=== PATIENT | female | born 1945 | race Caucasian/White ===

== ENCOUNTER 2016-07-14 12:23 | Emergency (ER) | payer MEDICARE ==
[~2016-07-14 12:23] MED LIST: ACET500CAP PO; ASAB PO; BUM1 PO; C1 PO; CARDCD180 PO; CENTRUM TAB1 TAB PO; COUMADIN3 MG PO; COUMADIN4 MG PO; GLUCOPHAGE1000 MG PO; HUMALOG SC; KLOR-CON 1010 MEQ PO; L40 PO; LANTUS SC; MAGOX4 PO; MIRALAXPKT PO; MOMUD PO; NO LIST; PRIN10 PO; PRIN5 PO; PROAIR HFA INH; PROVENTIL; VENTOLIN HFA INH; VERAMYST27.5 MCG NAS; ZANTAC150 MG PO; ZOCOR40 PO; ZOFRAN; ZOL50 PO
[2016-07-14 14:18] LABS: ASCORBIC ACID (UR NOT ORDER) NEG (NEG); BASOPHILS 0.1 %; BASOPHILS ABSOLUTE 0.01 10/3/uL (0.0-0.16); BILIRUBIN, URINE NEGATIVE (NEG); EOSINOPHILS 1.5 %; EOSINOPHILS ABSOLUTE 0.12 10/3/uL (0.0-0.53); ER CBC TAT 0 Hrs 15 Mins; ER URINALYSIS TAT 0 Hrs 15 Mins; HEMATOCRIT 34.5 % (36.0-48.0); HEMOGLOBIN 10.5 g/dL (12.0-16.0); IMMATURE GRANULOCYTES 0.2 %; IMMATURE GRANULOCYTES ABSOLUTE 0.02 10/3/uL (0.0-0.11); KETONE, URINE NEGATIVE (NEG); LEUKOCYTE ESTERASE(NOT OR TRACE (NEG); LYMPHOCYTES 13.6 %; MANUAL DIFF NO %; MEAN CORPUS HGB CONC 30.4 g/dL (32.0-36.0); MEAN CORPUSCULAR HEMOGLOB 27.2 pg (26.0-34.0); MEAN CORPUSCULAR VOLUME 89.4 fL (80-100); MEAN PLATELET VOLUME 9.9 fL (9.2-13.0); MONOCYTES 4.6 %; MONOCYTES ABSOLUTE 0.37 10/3/uL (0.21-1.20); NEUTROPHILS ABSOLUTE 6.47 10/3/uL (2.02-8.40); NITRITE (URINE) NEG (NEG); PLATELET COUNT 190 10/3/uL (150-400); RBC DISTRIBUTION WIDTH 16.1 % (12.0-16.0); RED CELL COUNT 3.86 10/6/uL (4.0-5.6); WBC (NOT ORDERED) (RFLEX) 3 (0-5); WHITE BLOOD CELLS 8.1 10/3/uL (4.5-10.5)
[2016-07-14 14:29] LABS: A/G RATIO 0.8 (0.7-1.9); ALBUMIN 3.4 G/DL (3.5-5.0); CALCIUM, SERUM 9.2 MG/DL (8.5-10.4); CHLORIDE, SERUM 103 MMOL/L (96-112); CO2 (CARBON DIOXIDE) 30 MMOL/L (24-34); CREATININE 1.16 MG/DL (0.55-1.02); GFR AFRICAN AMERICAN 56 ML/MIN (>=60); GFR NON AFRICAN AMERICAN 48 ML/MIN (>=60); GLOBULIN 4.5 G/DL (2.5-4.1); POTASSIUM, SERUM 4.1 MMOL/L (3.5-5.3); SGOT(AST) 16 U/L (5-40); SGPT(ALT) 19 U/L (5-65); SODIUM, SERUM 140 MMOL/L (135-148); TOTAL BILIRUBIN 0.5 MG/DL (0-1.2); TOTAL PROTEIN 7.9 G/DL (6.0-8.5)
[2016-07-14 14:30] LABS: ALKALINE PHOSPHATASE 121 U/L (45-117); BUN (BLOOD UREA NITROGEN) 24 MG/DL (6-23); GLUCOSE, SERUM 194 MG/DL (60-99)
[2016-10-26] MEDS ORDERED: BUM1 PO (19:39)
[2016-10-26] MEDS ORDERED: *UNABLE1 (19:39)
[2016-10-26] MEDS ORDERED: JANUMET1 TA1 PO (19:39)
[2016-10-26] MEDS ORDERED: MAGOX4 PO (19:40)
[2016-10-26] MEDS ORDERED: PEP20 PO (19:40)
[2016-10-26] MEDS ORDERED: ZETIA PO (19:40)
[2016-10-26] MEDS ORDERED: COUMADIN6 MG PO (19:40)
[2016-10-26] MEDS ORDERED: ZOL100 PO (19:40)
[2016-10-26] MEDS ORDERED: KLOR-CON 1010 MEQ PO (19:40)
[2016-10-26] MEDS ORDERED: ZOCOR20 PO (19:40)
[2016-10-26] MEDS ORDERED: LANTUS SC (19:41)
[2016-10-27] MEDS ORDERED: PRIN10 PO (10:49)
[2016-10-27] MEDS ORDERED: C1 PO (10:50)
[2016-10-27] MEDS ORDERED: FLEX PO (10:52)
== END 2016-07-14 17:24 | disposition home or self-care (01) ==
LOC: ER 12:23
PROVIDERS: Hospitalist
DX: H66.91 Otitis media, unspecified, right ear (principal); N17.9 Acute kidney failure, unspecified; Z88.0 Allergy status to penicillin; Z88.8 Allergy status to other drugs, medicaments and biological substances; Z79.899 Other long term (current) drug therapy; Z79.01 Long term (current) use of anticoagulants; Z79.4 Long term (current) use of insulin
CPT/HCPCS: 74022; 80053; 81001; 83690; 85025; 99284

== ENCOUNTER 2016-12-14 21:18 | Inpatient (IN) | payer MEDICARE, MEDICAID ==
[~2016-12-14] VITALS: Ht 152.4 cm; Wt 95.0 kg
--- NOTE | ~2016-12-14 | DS ---
Discharge Summary [facility] [address] [place]. [address] NAME: ROSA SAMUEL : 49 STATUS : ADM IN [facility]#: [id number] AGE: 71 ADM/REG DATE : 12/15/16 MR#: [id number] REPORT SERV DATE: 01/14/17 DICTATED BY: CASSIUS SELF DATE: 01/13/17 REPORT STATUS : Draft TRANSCRIBED BY: MODL DATE: 01/13/17 ADMISSION DATE: 12/15/2016 DISCHARGE DATE: CONSULTING PHYSICIAN: Dr. Loving for ID, Dr. Robert Vallecillo for EP Cardio, and Dr. Prado for a CTVS. FINAL DIAGNOSES: 1. Methicillin-resistant Staphylococcus aureus sepsis secondary to infected permanent pacemakers, status post removal. 2. Status post rapid atrial fibrillation with sick sinus syndrome. 3. Coronary artery disease with history of coronary artery bypass grafting. 4. Hypertension. 5. Obesity hypoventilation syndrome. 6. Diabetes. 7. Status post metabolic encephalopathy. 8. Anemia of chronic disease. 9. Chronic thrombocytopenia. 10.Obesity. 11.Breast cancer with bone metastasis. HOSPITAL COURSE: Please refer to the H and P done by Dr. Craig on 12/15/2016, the interim discharge summary done by Dr. Burgess on 12/21/2016, the interim discharge summary done by Dr. Paiz on 12/29/2016, the interim discharge summary done Dionne Gill on 01/04/2017, and the interim discharge summary done by Dr. Fischer on 01/10/2017. Since I took care of this patient, the patient is close to discharge and we are just trying to figure out on a safe discharge. The family wanted her to go to a assisted facility, but she has been denied. The patient herself preferred to go home. She said she has a big house and somebody is going to be there. I discussed this with the Case Management and they said that she has a family member, who is [employer], who can actually help in giving the IV antibiotics. At this point, with the patient being alert and oriented x3, seemingly has some support at home. We are going to be discharging her once we have the PICC line placed and cleared from ID. She will be going home with home health and home PT, and she will follow up with her PCP, Courtney York, in one to two weeks. Follow up with Robert Vallecillo, scheduled for 01/14/2017 at 9:45 a.m. Follow up with Brandon Prado on 01/18/2017. Follow up with [facility], Dr. So, as scheduled. DISCHARGE MEDICATIONS: She will be on the following medications: Lipitor 40 mg at bedtime; Bumex 1 mg a day; Coreg 3.125 mg twice a day; Colace 100 mg twice a day; Metamucil one packet twice a day p.r.n.; Pepcid 20 mg at bedtime; Basaglar KwikPen U100, 18units at bedtime, down from 35 units; lactulose 15 mL twice a day and p.r.n.; Femara 2.5 mg at bedtime; lisinopril 20 mg a day; magnesium oxide 400 mg twice a day; Nexium 40 mg a day; Zoloft 100 mg at bedtime; simethicone 160 mg four times a day; Aldactone 25 mg a day; Carafate 1 g three times a day; Coumadin 3 mg at night; vancomycin 750 mg once a day until 02/06/2017; Humalog 10 units before meals; DuoNeb q.4 hours p.r.n.,; Caltrate 600 mg plus D 1200 mg a day; Tylenol p.r.n.; Dulcolax p.r.n., glucagon p.r.n.; Zofran; Phenergan; Discharge Summary [address] [address] NAME: ROSA SAMUEL : 49 STATUS : ADM IN [facility]#: [id number] AGE: 71 ADM/REG DATE : 12/15/16 MR#: [id number] REPORT SERV DATE: 01/14/17 DICTATED BY: CASSIUS SELF DATE: 01/13/17 REPORT STATUS : Draft TRANSCRIBED BY: CHYNA DATE: 01/13/17 Kaopectate p.r.n.; Flexeril p.r.n.; Clarinda 5 mg p.o. q.6 p.r.n This has been explained to the patient. MARLON/CHYNA Cassius Self M.D. / [id number] CC: Hilary Shah MD NASTASSJA MOORE, RUNNER MAN
--- NOTE | ~2016-12-14 | IDS ---
Interim Discharge Summary [facility] [address] [place]. [address] NAME: RSOA SAMUEL : 49 STATUS : ADM IN [facility]#: [id number] AGE: 71 ADM/REG DATE : 12/15/16 MR#: [id number] REPORT SERV DATE: 12/29/16 DICTATED BY: MARTHA CRUZ DATE: 12/28/16 REPORT STATUS : Draft TRANSCRIBED BY: CHYNA DATE: 12/28/16 ADMISSION DATE: 12/15/2016 DISCHARGE DATE: PROGRESS NOTE/INTERIM DISCHARGE SUMMARY SUBJECTIVE: The patient is excited about getting a temporary pacemaker and eventual removal of her existing pacemaker and six weeks of potential IV antibiotics. OBJECTIVE: VITAL SIGNS: Blood pressure 116/56, 97% on 2 L, 18 respirations, 62 pulse, afebrile 98.0. GENERAL: No acute distress. HEENT: PERRLA. No scleral icterus. CARDIOVASCULAR: 2/6 systolic aortic base murmur. RESPIRATORY: Bibasilar coarse breath sounds. No wheezes. No crackles. ABDOMEN: Obese, nontender. Nondistended. Positive bowel sounds. EXTREMITIES: No edema. No ecchymosis. NEURO: GCS 15. A and O x4. PSYCH: Normal affect and mood. LABORATORY DATA: Labs are reviewed white count 8.2 from 6.9 from 9.3, hemoglobin 8.9 from 9.6, platelets are 121,000 from 126. Sodium 140, 4.1 potassium, 34 BUN, 0.95 creatinine from 1.21 creatinine two days ago. She has blood culture surveillance repeat on the that unfortunately grew the same Staph methicillin-resistant. Her culture on the was negative for the blood and then she had 2/2 MRSA bacteremia on 12/23/2016 for which she is sensitive to Zyvox, rifampin, Bactrim, and vanc. She has a JOSE ordered. She has a CT abdomen and pelvis. Recent passage of stone in the left renal collecting system. Extensive osteo metastasis. Incidental uterine fibroid. CT of the brain had showed for her altered mental status. Stable atrophy. However, she had transthoracic echo here given concern for bacteremia that was recurrent for which had showed an echodensity and RA pacing lead, moderate reduction LVEF. HOSPITAL COURSE/INTERIM DISCHARGE SUMMARY: This is an unfortunate 71-year-old female who suffers from obesity, insulin diabetes, atrial fibrillation RVR, COPD, metastatic breast cancer no plans for chemo at this time, came in initially on 12/15/2016 after recent MRSA sepsis discharge with recent diagnosis of metastatic breast cancer in 10/2016, was started on letrozole by Oncology with complete six-week course of IV vancomycin through 12/07/2016. Went to [facility] and [facility], thereafter, came in acute on chronic systolic heart failure, atrial fibrillation RVR, significant fever. Panculture unfortunately grew out MRSA bacteremia 2/2 subsequent day. Blood cultures no growth today but then two days ago, she grew out again 1/2 MRSA. She had altered mental status and COPD exacerbation which were likely sepsis encephalopathy. Concerned for worsened hypoxic encephalopathy, improved with Brovana, budesonide, steroids. As a result, had to increase her Levemir during that time, now her steroids are going down and she has been requiring less insulin. Her MRSA bacteremia. She had an echocardiogram for which showed an RV pacer lead vegetation in the right atrium. She is to get JOSE and likely will need her pacemaker to be replaced given she Interim Discharge Summary [address] [address] NAME: ROSA SAMUEL : 49 STATUS : ADM IN [facility]#: [id number] AGE: 71 ADM/REG DATE : 12/15/16 MR#: [id number] REPORT SERV DATE: 12/29/16 DICTATED BY: MARTHA CRUZ DATE: 12/28/16 REPORT STATUS : Draft TRANSCRIBED BY: MODAmber DATE: 12/28/16 is pacer dependent via interrogation. She will need temporary pacer placed tomorrow and possible existing pacer extraction on Wednesday or deferred Dr. Nugent, his expertise and likely will need six weeks of IV vanc. Thereafter, we will defer to Dr. Loving and his expertise. We will reduce her prednisone today. Regarding her glycemic needs she has been much better controlled today and we will continue current management. All questions were answered. It took well over 30 minutes to do. FAITH/CHYNA Martha Cruz DO / [id number] CC: Martha Cruz DO
--- NOTE | ~2016-12-14 | CN ---
Consultation Report [facility] [address] [place]. [address] NAME: ROSA SAMUEL : 49 STATUS : ADM IN [facility]#: [id number] AGE: 71 ADM/REG DATE : 12/15/16 MR#: [id number] REPORT SERV DATE: 12/31/16 DICTATED BY: BRANDON PRADO DATE: 12/30/16 REPORT STATUS : Draft TRANSCRIBED BY: MODAmber DATE: 12/30/16 CONSULTATION DATE OF CONSULTATION: 12/29/2016 PERTINENT HISTORY: The patient is a 71-year-old female, referred by Dr. Nugent, after concerns have been raised over possible infection of the chronic indwelling permanent pacemaker, dual-chamber type, left infraclavicular position. The patient had multiple medical problems. She had previous coronary artery bypass grafting, also had previous pacemaker placement by Dr. Melgoza years ago. She now had persistent fevers and bacteremia, and there was some concern over an abnormal ultrasound examination of the pacemaker leads. For that reason, she now is being referred for a Cook catheter extraction of the pacemaker device and the pacemaker leads. The past medical history is significant for previous coronary artery bypass grafting via sternotomy, also with poor wound healing issues due to previous left mastectomy and left radiation. The patient also had multiple medical problems, including diabetes mellitus, hypertension, hyperlipidemia. SOCIAL HISTORY: Never tobacco or ethanol use. FAMILY HISTORY: Noncontributory. REVIEW OF SYSTEMS: Found elsewhere in the chart. PHYSICAL EXAMINATION: VITAL SIGNS: T-max of 100, blood pressure 120/70, heart rate is paced 70s, respirations are 18. She is mildly sedated. CONSTITUTIONAL: She is obese. NEUROLOGICAL: She is intact. PSYCHIATRIC: Normal. PULMONARY: Showed breath sounds clear, but distant. No obvious rales. CARDIAC: Showed paced rhythm. No obvious murmur. A well-healed sternotomy wound. GI: Showed abdomen to be obese, soft, nontender. No masses. EXTREMITIES: Showed no obvious edema. SKIN: Showed no obvious rash. MUSCULOSKELETAL: Unremarkable. : Showed normal female external genitalia. The chest x-ray demonstrated clear lung sampson. There was permanent pacemaker placed in the left infraclavicular position with right atrial lead active fixation and right ventricular lead active fixation. IMPRESSION: At this time is possible infection of the permanent pacemaker, indwelling and the plan is to proceed with Cook catheter extraction and we will proceed with extraction of Consultation Report [place] [address] [address] NAME: ROSA SAMUEL : 49 STATUS : ADM IN [facility]#: [id number] AGE: 71 ADM/REG DATE : 12/15/16 MR#: [id number] REPORT SERV DATE: 12/31/16 DICTATED BY: BRANDON PRADO DATE: 12/30/16 REPORT STATUS : Draft TRANSCRIBED BY: CHYNA DATE: 12/30/16 those leads and the device and probable VAC pack dressing will be placed with eventual closure . /CHYNA Brandon Prado M.D. / [id number] CC: Dionne Gill M.D.
--- NOTE | ~2016-12-14 | DS ---
Discharge Summary [facility] [address] [place]. [address] NAME: ROSA SAMULE : 49 STATUS : DIS IN PAT#: [id number] AGE: 71 ADM/REG DATE : 12/15/16 MR#: [id number] REPORT SERV DATE: 01/16/17 DICTATED BY: CASSIUS SELF DATE: 01/15/17 REPORT STATUS : Draft TRANSCRIBED BY: MODL DATE: 01/15/17 ADMISSION DATE: 12/15/2016 DISCHARGE DATE: 01/15/2017 ONCOLOGIST: Dr. Kai So. ID: Dr. Loving. EP CARDIO: Dr. Robert Nugent. ACTVS: Dr. Otto. FINAL DIAGNOSES: 1. Methicillin-resistant Staphylococcus aureus sepsis secondary to infected permanent pacemaker, status post removal. 2. Status post rapid atrial fibrillation with sick sinus syndrome. 3. Coronary artery disease with history of CABG. 4. Hypertension. 5. OHS. 6. Diabetes. 7. Anemia of chronic disease. 8. Chronic thrombocytopenia. 9. Obesity. 10.Breast cancer with bone metastasis. HOSPITAL COURSE: Please refer to the discharge summary done by myself on 01/14/2017. The patient is supposed to be discharged; however, the PICC line was not placed. We had to consult Dr. Monge of Vascular to put a PICC line. This delayed her discharge. However, there were some problems with her chcf days that she only has 11 days, and the patient would need antibiotic until 02/06/2017. The family said that they cannot handle this, and they had to look for some other place for her. We finally got [facility] to evaluate the patient, and they are willing to accept the patient today. Also, the patient's white count and anemia were getting worse. We believe that this might be a reaction to the vancomycin, though we are not sure. To play it safe, we switched the patient to daptomycin. The patient will now be transferred to [facility]. She will have the same followup and same medications with the change of instead of vancomycin, the patient will be getting daptomycin at 8 mg/kg q.24 hours and also the long-acting insulin will be down to 10 units instead of 18. This has been explained to the patient and to the family, and they are happier with this plan. MARLON/CHYNA Cassius Self M.D. Discharge Summary [address] [address] NAME: ROSA SAMUEL : 49 STATUS : DIS IN PAT#: [id number] AGE: 71 ADM/REG DATE : 12/15/16 MR#: [id number] REPORT SERV DATE: 01/16/17 DICTATED BY: CASSIUS SELF. DATE: 01/15/17 REPORT STATUS : Draft TRANSCRIBED BY: CHYNA DATE: 01/15/17 / [id number] CC: Hilary Shah NP
--- NOTE | ~2016-12-14 | HP ---
History And Physical [place] [address] [facility] [place]. [address] NAME: ROSA ZHENG : 49 STATUS : ADM IN [facility]#: [id number] AGE: 71 ADM/REG DATE : 12/15/16 MR#: [id number] REPORT SERV DATE: 12/15/16 DICTATED BY: ISBAELA BURCH DATE: 12/15/16 REPORT STATUS : Draft TRANSCRIBED BY: MODAmber DATE: 12/15/16 DATE OF ADMISSION: 12/15/2016 POINT OF ENTRY: [facility] Emergency Department. PRIMARY CARE PHYSICIAN: Unknown at this time. PRIMARY STAFF PHARMACIST HOSPITAL: Also unknown at this time. CHIEF COMPLAINT: Shortness of breath, hypoxemia. HISTORY OF PRESENT ILLNESS: Ms. Zheng is a 71-year-old female with a history of atrial fibrillation on anticoagulation, insulin-dependent 2, chronic systolic congestive heart failure with ejection fraction of 40%, metastatic breast cancer with multiple bony lesions as well as a recent history of MRSA bacteremia who was admitted to the Hospitalist Service for reports of shortness of breath and hypoxemia. The patient was admitted to the Hospitalist Service from October 26 through November 11 for acute on chronic hypoxic respiratory failure, encephalopathy, and found to have evidence of MRSA bacteremia of unclear source as well as a new diagnosis of metastatic breast cancer with multiple bony lesions. She was discharged from our facility with instructions for IV vancomycin therapy for MRSA bacteremia through December 08. The patient is brought today from [facility] for reports of shortness of breath and hypoxemia. The patient is unable to provide much history, her daughters who previously were at bedside are no longer available for me to get additional history from. The patient does state that she was feeling short of breath, was having some cough and sputum production and states that her family members and/or staff are concerned that she was turning blue. She also does report some chest pain as well. Initial evaluation in the emergency department was notable for a fever of 100.8 degrees Fahrenheit. Chest x-ray concerning for some mild volume overload. Does have evidence of urinary tract infection. White count is normal. She also has evidence of some volume overload with a BNP of 1380. The patient was subsequently admitted to the Hospitalist Service for further evaluation and management. REVIEW OF SYSTEMS: Comprehensive system otherwise negative unless listed in history of present illness. PAST MEDICAL HISTORY: 1. Chronic systolic congestive heart failure with ejection fraction of 40%. 2. Atrial fibrillation, on Coumadin. 3. Sick sinus syndrome, status post pacemaker insertion. 4. Mild pulmonary hypertension. 5. Obstructive sleep apnea and obesity hypoventilation syndrome on BiPAP therapy. 6. Chronic hypoxic respiratory failure, on 2 L nasal cannula. History And Physical [address] [address] NAME: ROSA ZHENG : 49 STATUS : ADM IN [facility]#: [id number] AGE: 71 ADM/REG DATE : 12/15/16 MR#: [id number] REPORT SERV DATE: 12/15/16 DICTATED BY: ISABELA BURCH DATE: 12/15/16 REPORT STATUS : Draft TRANSCRIBED BY: CHYNA DATE: 12/15/16 7. History of coronary artery disease with prior coronary artery bypass grafting. 8. Hypertension. 9. Insulin-dependent 2, hemoglobin A1c of 7.5. 10.History of metastatic breast cancer with multiple bony lesions. 11.Chronic anemia, anemia of chronic disease. 12.Recent history of MRSA bacteremia of unclear source. SURGICAL HISTORY: 1. Pacemaker. 2. CABG. 3. Left mastectomy. 4. Right shoulder surgery. 5. Cholecystectomy. 6. . ALLERGIES: PENICILLIN AND ADHESIVE TAPE. HOME MEDICATIONS: 1. Tylenol 162.5 mg q.6 hours p.r.n. 2. DuoNeb one inhalation q.4 hours p.r.n. 3. Bisacodyl 10 mg daily. 4. Bismuth subsalicylate 524 mg q.4 hours. 5. Bumex 1 mg daily. 6. Caltrate vitamin D 1200 mg daily. 7. Carvedilol 3.125 mg b.i.d. 8. Flexeril 10 mg q.8 hours p.r.n. 9. Theophylline with guaifenesin 5-10 mL q.4 hours p.r.n. 10.Docusate 100 mg b.i.d. 11.Nexium 40 mg daily. 12.Pepcid 20 mg at bedtime. 13.Insulin glargine 35 units at bedtime. 14.Humalog 10 units t.i.d. with meals. 15.Humalog sliding scale. 16.Lactulose 15 mL b.i.d. 17.Lactulose 30 mL p.r.n. 18.Femara 2.5 mg at bedtime. 19.Lisinopril 10 mg daily. 20.Magnesium oxide 400 mg b.i.d. 21.Milk of magnesia 30 mL daily. 22.Zofran ODT 4 mg p.r.n. 23.Phenergan 12.5 mg q.6 hours p.r.n. 24.Psyllium packet 1 tab b.i.d. 25.Zoloft 100 mg at bedtime. 26.Simethicone 160 mg q.i.d. 27.Aldactone 25 mg daily. 28.Carafate 1 g t.i.d. History And Physical [address] [address] NAME: ROSA ZHENG : 49 STATUS : ADM IN [facility]#: [id number] AGE: 71 ADM/REG DATE : 12/15/16 MR#: [id number] REPORT SERV DATE: 12/15/16 DICTATED BY: ISABELA BURCH DATE: 12/15/16 REPORT STATUS : Draft TRANSCRIBED BY: CHYNA DATE: 12/15/16 29.Coumadin 3 mg daily. SOCIAL HISTORY: Denies any tobacco, alcohol, or illicit's. FAMILY MEDICAL HISTORY: History of diabetes, Crohn disease, and gastric cancer. LABS AND IMAGIN. White count is 9.5, hemoglobin is 7.9, hematocrit is 26.5, platelets count is 154, INR 1.5. 2. Sodium 138, potassium 5.1, chloride 102, carbon dioxide 27, BUN 19, creatinine 1.24, glucose is 184, calcium is 8.5, protein 7.2, albumin 2.5, bilirubin is 1.0, ALT is 15, AST 45, alkaline phosphatase is 190. 3. Troponin pending. 4. BNP 1380. 5. Lactic acid 1.4. 6. Lipase is 245. 7. ABG; pH is 7.4, pCO2 of 39, PO2 of 66, bicarb is 20, saturating 92% on 2 L by nasal cannula. 8. Urinalysis: Spec gravity 1.015 with hazy, large blood, moderate leukocyte esterase, 29 red with 129 white blood cells per high power field with 2 epithelial cells. 9. Chest x-ray per my review shows cardiomegaly with pacemaker in place with some very mild intravascular volume overload. 10.EKG per my review shows an underlying atrial fibrillation rhythm that is primarily of the paced with heart rate of 120. No evidence of any acute ischemia or infarction review of [employer] and [employer] do revealed an echocardiogram from October 2016 shows ejection fraction of 40% with [id number] tricuspid regurgitation with mild pulmonary hypertension. PHYSICAL EXAMINATION: VITAL SIGNS: Temperature is 100.8 degrees Fahrenheit, pulse is 74, respirations 20, saturating 95% on 2 L via nasal cannula, blood pressure 169/82. On recheck, blood pressure is 133/48, pulse of 85, saturating 97% on 3 L nasal cannula. GENERAL: The patient is awake, alert, in no distress. Resting comfortably. She is a chronically ill-appearing elderly female. No family is currently at bedside. HEENT: Atraumatic and normocephalic. Moist mucous membranes. Pupils are equal, round, reactive to light and accommodation. Extraocular eye movements are intact. No scleral icterus. NECK: No jugular venous distention. No carotid bruits. CARDIAC: Irregularly irregular rate and rhythm. A faint 2/6 systolic murmur heard best over left lower sternal border. LUNGS: On oxygen, she has very poor stress test. She has decreased breath sounds in the bases with prolonged expiratory phase with some very mild inspiratory crackles and rales, bilateral bases. No wheezes or rhonchi appreciated. ABDOMEN: Obese, soft, nontender, nondistended. Good bowel sounds. No rebound, guarding, or rigidity. EXTREMITIES: Warm perfused with trace lower extremity edema. SKIN: Warm and dry. History And Physical [address] [address] NAME: ROSA ZHENG : 49 STATUS : ADM IN [facility]#: [id number] AGE: 71 ADM/REG DATE : 12/15/16 MR#: [id number] REPORT SERV DATE: 12/15/16 DICTATED BY: ISABELA BURCH DATE: 12/15/16 REPORT STATUS : Draft TRANSCRIBED BY: MODL DATE: 12/15/16 PSYCH: Affect appropriate. NEURO: She is alert and oriented to person only, very poor historian. Cranial nerves II through XII grossly intact. Speech is normal. Gait not assessed. ASSESSMENT AND PLAN: Ms. Zheng is a 71-year-old female, who presents with shortness of breath, hypoxemia, and found to have evidence of urinary tract infection as well as acute on chronic systolic congestive heart failure. PROBLEM LIST: 1. Acute on chronic systolic congestive heart failure. 2. Acute on chronic hypoxic respiratory failure. 3. Atrial fibrillation with RVR. 4. Urinary tract infection. 5. Obstructive sleep apnea and obesity hypoventilation syndrome on home BiPAP versus CPAP. 6. Mild renal insufficiency. 7. Insulin-dependent diabetes mellitus type 2. PLAN: 1. Acute on chronic systolic congestive heart failure. The patient has some mild volume overload on chest x-ray, BNP is also elevated. She received 40 IV Lasix here in the ER. We will dose 1 mg of Bumex q.8 hours for [address] the patient on fluid and sodium restriction, consult heart failure team for assistance. 2. Acute on chronic hypoxic respiratory failure. I suspect this is multifactorial from mild volume overload and her underlying PRISCILLA and OHS. We will continue q.4 hours DuoNeb p.r.n., place the patient on intermittent BiPAP at bedtime p.r.n. as well as order aggressive pulmonary toilet with incentive spirometry, flutter valve, as well as EzPAP with her DuoNebs. 3. Urinary tract infection. Follow up urine culture. We will start on IV vancomycin and Rocephin given her history of recent MRSA bacteremia as well as Rocephin to cover other bugs. 4. Obstructive sleep apnea and obesity hypoventilation syndrome. We will place patient on intermittent p.r.n. at bedtime BiPAP. 5. Renal insufficiency. Hold patient's lisinopril while we provide IV diuresis. 6. Atrial fibrillation with RVR. I placed the patient on some diltiazem per protocol. Continue the patient's home Coreg. 7. Insulin-dependent diabetes mellitus type 2. I placed the patient on level 3 insulin sliding scale. Continue the patient's home long-acting insulin. 8. DVT prophylaxis. The patient is on Coumadin. CODE STATUS: The patient wishes to be a full code, this was confirmed by POLST form that accompany chart upon transfer. JANET/CHYNA Isabela Kim History And Physical [address] [address] NAME: ROSA ZHENG : 49 STATUS : ADM IN PAT#: [id number] AGE: 71 ADM/REG DATE : 12/15/16 MR#: [id number] REPORT SERV DATE: 12/15/16 DICTATED BY: ISABELA BURCH DATE: 12/15/16 REPORT STATUS : Draft TRANSCRIBED BY: MODL DATE: 12/15/16 MD Kiara / [id number] CC: Edy Randolph M.D.
--- NOTE | ~2016-12-14 | OP ---
Record Of Operation [facility] [address] [place]. [address] NAME: ROSA SAMUEL : 49 STATUS : ADM IN [facility]#: [id number] AGE: 71 ADM/REG DATE : 12/15/16 MR#: [id number] REPORT SERV DATE: 12/31/16 DICTATED BY: BRANDON PRADO DATE: 12/30/16 REPORT STATUS : Draft TRANSCRIBED BY: CHYNA DATE: 12/30/16 DATE OF PROCEDURE: 12/30/2016 PREOPERATIVE DIAGNOSIS: Infected dual-chamber permanent pacemaker leads. POSTOPERATIVE DIAGNOSIS: Infected dual-chamber permanent pacemaker leads. OPERATIVE PROCEDURE: Cook catheter extraction of right atrial and right ventricular leads under fluoroscopy with permanent pacemaker removal, pocket debridement, and VAC pack placement. ANESTHESIA: General endotracheal anesthesia, AA. DRAINS: No drains were placed. PERTINENT HISTORY: The patient is a 71-year-old female who had undergone previous dual- chamber permanent pacemaker placed in the left infraclavicular position by Dr. Melgoza years ago who now has multiple medical problems and recurrent fevers with bacteremia and now concerns with possible infected permanent pacemaker leads with abnormal ultrasonic examination. OPERATIVE FINDINGS: The patient had no evidence of infection in the pacemaker pocket. Cultures were obtained. The leads were densely adherent throughout the entire course through the endovascular channels into the heart. OPERATIVE PROCEDURE: The patient was taken to the operating room, placed in the supine position, anesthesia obtained, and the patient was prepped and draped in the usual fashion. Fluoroscopy was then used to evaluate the two leads, one in the right atrium and one in the right ventricle, both were active fixation leads. An incision was made through the pocket in the left infraclavicular fossa, the pacemaker pocket was opened, the dual-chamber pacemaker was brought to the skin surface, the pacemaker leads were dissected to their entire lengths. A temporary pacing wire had been placed in the right neck by Dr. Vallecillo, and the patient was maintained with that pacemaker modality. The pacemaker generator was disconnected from the two indwelling leads, stylets were placed in both leads and confirmed to be patent. The active fixation could not be reactivated, and therefore, they remained fixed to the heart, both the right atrium and the right ventricle. The ends of those leads were amputated and interlocking stylets were placed down both central channels. Under fluoroscopic guidance, a Cook catheter shortie cutter, size 11-[place]izen [place], was used to clear the scar from the leads underneath the left clavicle and extending into the innominate vein, this position and pathway were confirmed by fluoroscopy, both right atrial and right ventricular leads were freed. The short device was then removed and the longer 11-Citizen [place] device was then used to divide the adhesions throughout the entire length of the right ventricular lead; this lead was brought out in its entirety. That device was then used to divide the adhesions throughout the entire length of the right atrial lead, this was also brought out through its entirety. The leads were examined and had no particular abnormalities except for the usual adhesions on them, these were easy to excise and sent for Record Of Operation [address] [address] NAME: ROSA SAMUEL : 49 STATUS : ADM IN [facility]#: [id number] AGE: 71 ADM/REG DATE : 12/15/16 MR#: [id number] REPORT SERV DATE: 12/31/16 DICTATED BY: BRANDON PRADO DATE: 12/30/16 REPORT STATUS : Draft TRANSCRIBED BY: CHYNA DATE: 12/30/16 microbiology studies. Good hemostasis was noted. The pacemaker pocket was completely debrided and all fibrous tissue were amputated. These pockets were irrigated with 3 L of pulse lavage saline. Hemostasis was obtained with electrocautery. A VAC pack dressing was placed. The patient tolerated the procedure well and was taken from the operating room table to the recovery room in stable condition and into the ICU. CARMEN/CHYNA Brandon Prado M.D. / [id number] CC: Dionne Gill M.D.
--- NOTE | ~2016-12-14 | CN ---
Consultation Report [facility] [address] [place]. [address] NAME: ROSA SAMUEL : 49 STATUS : ADM IN [facility]#: [id number] AGE: 71 ADM/REG DATE : 12/15/16 MR#: [id number] REPORT SERV DATE: 12/24/16 DICTATED BY: KOKI LOVING DATE: 12/24/16 REPORT STATUS : Draft TRANSCRIBED BY: MODL DATE: 12/24/16 DATE OF CONSULTATION: 12/24/2016 Infectious Disease Consult REASON FOR CONSULTATION: MRSA sepsis. HISTORY OF PRESENT ILLNESS: This is a 71-year-old female, known to me from consultation during her last admission to [facility], when I saw her on 10/27/2016 for MRSA sepsis. There is no obvious etiology. She did have a transthoracic echocardiogram that admission which was unrevealing. Because of an unclear source and some back pain. She had a CT imaging done which showed evidence of widely metastatic disease in her bones which led to a biopsy of the pelvic bone on 11/05/2016 which confirmed the diagnosis of metastatic breast cancer. She was seen by Oncology and started on letrozole. The patient was discharged to complete a 6-week course of IV vancomycin through 12/07/2016. She initially went to [facility] and then into [facility] The patient was readmitted to [facility] on 12/15/2016 because of shortness of breath and hypoxemia and was felt to have acute on chronic systolic congestive heart failure along with atrial fibrillation with rapid ventricular rate. The patient had repeat blood cultures done on 12/14/2016 and 12/18/2016 which were negative. The patient overall had improved when she spiked a high fever yesterday to 103 and had repeat blood cultures done, both sets of which have returned positive for presumptive MRSA. The patient also developed some increasing shortness of breath, but is improved today and denies any cough and follow up chest x-ray show congestive changes without signs of an acute pneumonia. The patient was started the patient was started again on broad-spectrum antibiotics with vancomycin, cefepime, and Flagyl. She had received a brief course of ceftriaxone at the time of her readmission along with vancomycin because of concern about a UTI, but her urine culture had returned negative. Her chief complaint is episodic vague discomfort and noise in her ears when she lies down at night with her BiPAP mask. She denies any back pain or pain elsewhere at the present time. PAST MEDICAL HISTORY: Otherwise, unchanged from above and the consult from 10/27/2016. ALLERGIES: PENICILLIN. PRESENT MEDICATIONS: In addition to the antibiotics mentioned include, Lipitor, Bumex, Caltrate, vitamin D, Coreg, Colace, Pepcid, insulin sliding scale, lactulose, Femara (letrozole), Prinivil, magnesium oxide, Solu-Medrol 60 mg IV b.i.d., Protonix, Zoloft, Mylicon, Aldactone, Carafate, Coumadin, Levemir. SOCIAL HISTORY: Unchanged. FAMILY HISTORY: Unchanged. REVIEW OF SYSTEMS: As outlined above. Otherwise negative. Consultation Report [address] [place]. [address] NAME: ROSA SAMUEL : 49 STATUS : ADM IN [facility]#: [id number] AGE: 71 ADM/REG DATE : 12/15/16 MR#: [id number] REPORT SERV DATE: 12/24/16 DICTATED BY: KOKI LOVING DATE: 12/24/16 REPORT STATUS : Draft TRANSCRIBED BY: CHYNA DATE: 12/24/16 PHYSICAL EXAMINATION: VITAL SIGNS: She weighs 91 kg. Fevers as mentioned. She is presently afebrile. Pulse 93, blood pressure 106/57, it was as low as 91/45 overnight. GENERAL: She is sitting up in a chair, alert, in no acute distress. HEAD AND NECK: Extraocular movements intact. Conjunctivae normal. The oral cavity shows no thrush. Neck is supple. LUNGS: Clear to auscultation posteriorly. She does have scattered bilateral inspiratory crackles anteriorly. CARDIAC: Shows a soft one to two over six systolic ejection murmur at the left sternal border. Pacemaker in the left upper chest has surrounding venous varicosities,. But no signs of definite inflammation. ABDOMEN: Obese, soft, and nontender. Decreased bowel sounds. EXTREMITIES: Show venous varicosities. She has a peripheral IV in her right wrist without signs of phlebitis. SKIN: Without rash. LAB STUDIES: White blood cell count today 11.9, it was 9.9, yesterday, hemoglobin 8.4, platelets 115. She has 29% bands. Procalcitonin is 20.51. Creatinine today is 1.89, it was 1.28 yesterday and 1.02 on 12/22/2016. Glucose is 392. Arterial blood gas yesterday showed a pH of 7.47, pCO2 of 41, pO2 of 77 on 40% FiO2. The patient's chest x-rays are reviewed and are as outlined above. She also had a CT scan of the brain without IV contrast yesterday which just showed stable atrophy and some fluid and some right mastoiditis. 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 I do not think the positive blood cultures from yesterday are likely to be from a new source of sepsis, but more likely a relapse of what ever the source was back in October. Specifically I do not see a hospital-acquired infection such as pneumonia or an IV device related infection. This of course is all concerning for the possibility of endocarditis and/or infection of her pacemaker. PLAN: 1. Vancomycin. 2. We would discontinue the cefepime and Flagyl. 3. We will get a transthoracic echocardiogram to start that she would likely need transesophageal echo. KENDRA/CHYNA Koki Loving M.D. Consultation Report [address] [place]. [address] NAME: ROSA SAMUEL : 49 STATUS : ADM IN [facility]#: [id number] AGE: 71 ADM/REG DATE : 12/15/16 MR#: [id number] REPORT SERV DATE: 12/24/16 DICTATED BY: KOKI LOVING DATE: 12/24/16 REPORT STATUS : Draft TRANSCRIBED BY: MODAmber DATE: 12/24/16 / [id number] CC: DO Kai Ortiz MD
--- NOTE | ~2016-12-14 | IDS ---
Interim Discharge Summary [facility] [address] [place]. [address] NAME: ROSA SAMUEL : 49 STATUS : ADM IN PAT#: [id number] AGE: 71 ADM/REG DATE : 12/15/16 MR#: [id number] REPORT SERV DATE: 12/21/16 DICTATED BY: ALONSO BURGESS DATE: 12/21/16 REPORT STATUS : Draft TRANSCRIBED BY: MODAmber DATE: 12/21/16 ADMISSION DATE: 12/15/2016 DISCHARGE DATE: 12/21/2016 DIAGNOSES: 1. Acute on chronic systolic heart failure and volume overload, on presentation. 2. Atrial fibrillation with rapid ventricular response. 3. Recent urinary tract infection and methicillin-resistant Staphylococcus aureus, completed treatment. 4. Methicillin-resistant Staphylococcus aureus bacteremia. 5. Anemia. 6. Chronic hypoxia. 7. Metastatic cancer. CT head done during this hospitalization negative. 8. Acute encephalopathy. LABS AND IMAGING: To date, CT head performed to evaluate for any metastatic disease. No acute intracranial abnormality, atrophy, chronic microvascular white matter ischemic changes. HOSPITAL COURSE: Please see H and P for complete details. HISTORY OF PRESENT ILLNESS: Briefly, this is a very pleasant 71-year-old female, who over the last few months has been receiving antibiotic therapy for MRSA bacteremia with vancomycin completed course on 12/07, but was during transitions from acute rehab to fdc, has had adjustments in multiple medications, was noted to have steady volume increase and essentially an acute overload. The patient tolerated diuresis with IV medications protocol. Respiratory status continued to improve. Concern for mild acute encephalopathy was noted by family. The patient's fluid balance began to improve. The patient's mental status slowly has improved. Infectious workup was evaluated, but negative. The patient is chronic hypoxic with CPAP dependence at night and has been tolerating this and compliant. On a daily basis, the patient's strength continues to improve. Family was requesting upon discharge to discharge home as the patient was making significant progress up until recent admission for acute systolic heart failure. Approximately a week prior to that, the patient had began to make slow and steady declines. The patient also has been monitored with blood sugar and on Levemir and sliding scale insulin. P.o. intake has improved and is currently monitoring I's and O's and oral intake. Anticipate discharge within next 24-72 hours, pending stabilization of weight, chronic O2, and improvement in mental status. The patient of note does not appear to do better on Bumex and Lasix load in times best. All questions answered with the patient. Care to be resumed by Medicine team in a.m. DDN/MODL Interim Discharge Summary [address] [place]. [address] NAME: ROSA SAMUEL : 49 STATUS : ADM IN PAT#: [id number] AGE: 71 ADM/REG DATE : 12/15/16 MR#: [id number] REPORT SERV DATE: 12/21/16 DICTATED BY: ALONSO BURGESS DATE: 12/21/16 REPORT STATUS : Draft TRANSCRIBED BY: MODAmber DATE: 12/21/16 Alonso Burgess MD / [id number] CC: Alonso Burgess MD
--- NOTE | ~2016-12-14 | OP ---
Record Of Operation [facility] [address] [place]. [address] NAME: ROSA SAMUEL : 49 STATUS : ADM IN PAT#: [id number] AGE: 71 ADM/REG DATE : 12/15/16 MR#: [id number] REPORT SERV DATE: 01/01/17 DICTATED BY: BRANDON PRADO DATE: 01/01/17 REPORT STATUS : Draft TRANSCRIBED BY: CHYNA DATE: 01/01/17 DATE OF PROCEDURE: 01/01/2017 PREOPERATIVE DIAGNOSIS: Status post removal of infected dual-chamber permanent pacemaker, left infraclavicular fossa. POSTOPERATIVE DIAGNOSIS: Status post removal of infected dual-chamber permanent pacemaker, left infraclavicular fossa, now in need of delayed primary closure of wound. OPERATIVE PROCEDURE: Delayed primary closure of permanent pacemaker wound of approximately 10 cm in length, left infraclavicular fossa. ANESTHESIA: General endotracheal anesthesia, AA. DRAINS: No drains were placed. OPERATIVE PROCEDURE: The patient was taken to the operating room and placed in the supine position. Anesthesia was obtained. The patient was prepped and draped in the usual sterile fashion. The left infraclavicular permanent pacemaker pocket wound was examined closely. It had been previously debrided of any devitalized tissue and fibrous material from the pocket. It was examined. Necrotic skin edges were excised. The wound was irrigated with 3 L of pulse lavage saline. Hemostasis was obtained with electrocautery. The deep spaces were obliterated in multiple layer fashion using running #1 Stratafix suture. The skin edges were approximately 10 cm in length were reapproximated with alternating interrupted 3- 0 nylon vertical mattress sutures and skin clips. Prevena dressing was placed. The patient tolerated procedure well and was taken back to the recovery room in stable condition. EVA Brandon Prado M.D. / [id number] CC: Dionne Gill M.D.
--- NOTE | ~2016-12-14 | CN ---
Consultation Report [facility] [address] [place]. [address] NAME: ROSA ZHENG : 49 STATUS : ADM IN [facility]#: [id number] AGE: 71 ADM/REG DATE : 12/15/16 MR#: [id number] REPORT SERV DATE: 12/26/16 DICTATED BY: TITUS NUGENT DATE: 12/26/16 REPORT STATUS : Draft TRANSCRIBED BY: MODAmber DATE: 12/26/16 CONSULTATION DATE OF CONSULTATION: 12/26/2016 INDICATION: Bacteremia. HISTORY OF PRESENT ILLNESS: Ms. Zheng is a 71-year-old female, who normally sees Dr. Melgoza. She has a pacemaker. She has been admitted for recurrent MRSA bacteremia. She denies chest pain. No swallowing problems. An echocardiogram has shown what appears to be an echodensity attached to one of her leads in the right atrium. PAST MEDICAL HISTORY: 1. Heart failure. 2. History of atrial fibrillation. 3. Sick sinus syndrome with pacemaker. 4. Hypertension. 5. Sleep apnea. 6. Coronary disease. 7. History of respiratory failure. 8. Diabetes. 9. Anemia. SOCIAL HISTORY: There is family in the room. She appears to be a nonsmoker. FAMILY HISTORY: Noncontributory. HOME MEDICATIONS: Please see the list in the chart, as it is extensive. Relevant cardiac medications are Bumex 1 mg daily, Coreg 3.125 mg b.i.d., Prinivil 10 mg daily, spironolactone 25 mg daily, and Coumadin. ALLERGIES: SHE IS ALLERGIC TO PENICILLIN. REVIEW OF SYSTEMS: A 10-system review was asked and was negative except for noted above in history of present illness and for the following. She has chronic shortness of breath. Chronic fatigue. She does not get around well. No recent cold or flu symptoms. PHYSICAL EXAMINATION: VITAL SIGNS: Temperature 97.5, heart rate 70, blood pressure 150/63. GENERAL: Ms. Zheng is a well-developed female, in no acute distress. She is alert and oriented to person and place. HEENT: Negative. NECK: There is no obvious JVD in her neck. She does not appear dehydrated. Consultation Report [facility] [address] [place]. [address] NAME: ROSA ZHENG : 49 STATUS : ADM IN PAT#: [id number] AGE: 71 ADM/REG DATE : 12/15/16 MR#: [id number] REPORT SERV DATE: 12/26/16 DICTATED BY: TITUS NUGENT DATE: 12/26/16 REPORT STATUS : Draft TRANSCRIBED BY: CHYNA DATE: 12/26/16 LUNGS: Lungs have decreased breath sounds at both bases. Minor rhonchi. No wheezing. HEART: Tones are regular. There is a murmur. ABDOMEN: The abdominal exam is negative. She has good bowel sounds. EXTREMITIES: Shows chronic pitting edema. NEUROLOGIC: She moves all four extremities. She has normal speech. SKIN: Shows some bruising. LABORATORY DATA: White blood cell count is 9, hemoglobin is 9, hematocrit 31, platelet count 126. Sodium 139, potassium 4.2, BUN 45, creatinine 1.2. As before, blood cultures have shown MRSA, which is recurrent. Echocardiogram: This was performed this hospitalization and documents a mobile echodensity, which seems to be attached to the pacemaker wire in the right atrium. The ejection fraction is 55%. IMPRESSION: 1. 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 2. Presence of pacemaker. 3. Multiple other medical and cardiology problems as listed above. PLAN: Due to the suspicious transthoracic echocardiogram, we will proceed with a JOSE to characterize this echodensity in the right atrium. Given her recurrent MRSA and presence of pacemaker, there is a very good chance that the pacemaker will need to be removed no matter what the JOSE shows. This was discussed with the patient and her family and they agree. We will proceed with a transesophageal echocardiogram on Wednesday. LAURIE/CHYNA Titus Nugent M.D. / [id number] CC: Garrick Bonilla DO
--- NOTE | ~2016-12-14 | CN ---
Consultation Report [facility] [address] [place]. [address] NAME: ROSA SAMUEL : 49 STATUS : ADM IN [facility]#: [id number] AGE: 71 ADM/REG DATE : 12/15/16 MR#: [id number] REPORT SERV DATE: 01/15/17 DICTATED BY: SINAN MONGE DATE: 01/15/17 REPORT STATUS : Draft TRANSCRIBED BY: CHYNA DATE: 01/15/17 CONSULT NOTE DATE OF CONSULTATION: 01/14/2017 REASON FOR CONSULTATION: Evaluation for long-term IV access. BRIEF HISTORY: The patient is a 71-year-old female with a past medical history significant for atrial fibrillation, diabetes, breast cancer, and chronic systolic congestive heart failure, who was admitted to the hospital with shortness of breath and hypoxemia. Apparently, she has been in and out of the hospital for the past three months. Most recently, she had a pacemaker infection that necessitated removal and interval placement of a pacemaker on the right side. She needs long-term antibiotics, and the PICC nurses have tried to place a PICC line. While they were able to get a catheter in somewhat, it could not be threaded in all the way, even under fluoroscopy. I was consulted for evaluation and treatment. The patient denies any other complaints acutely. PAST MEDICAL HISTORY: Chronic systolic congestive heart failure, atrial fibrillation, sick sinus syndrome, pulmonary hypertension, obstructive sleep apnea, obesity, coronary artery disease, hypertension, diabetes, metastatic breast cancer, anemia, MRSA bacteremia. PAST SURGICAL HISTORY: A couple of pacemaker placements, coronary artery bypass, left mastectomy with axillary node dissection, right shoulder surgery, cholecystectomy, C- section. ALLERGIES: PENICILLIN, ANAPHYLAXIS; ADHESIVE TAPE, UNKNOWN. MEDICATIONS: Documented on the chart and were reviewed. FAMILY HISTORY: Diabetes, Crohn disease, gastric cancer. SOCIAL HISTORY: She denies tobacco, alcohol, or drug use. REVIEW OF SYSTEMS: A complete review of systems was performed and is negative with the exception of the aforementioned findings. PHYSICAL EXAMINATION: VITAL SIGNS: Documented on the chart and were reviewed. GENERAL: The patient is awake, alert, and oriented, no apparent distress. HEAD AND NECK: Her head and neck examination is benign without any carotid bruits. HEART: Irregular rate and rhythm. LUNGS: Coarse. ABDOMEN: Soft, nontender, nondistended. She has a normal complement of upper extremity Consultation Report [facility] [address] [place]. [address] NAME: ROSA SAMUEL : 49 STATUS : ADM IN PAT#: [id number] AGE: 71 ADM/REG DATE : 12/15/16 MR#: [id number] REPORT SERV DATE: 01/15/17 DICTATED BY: SINAN MONGE DATE: 01/15/17 REPORT STATUS : Draft TRANSCRIBED BY: MODAmber DATE: 01/15/17 pulses with left upper extremity edema. She has no ischemic ulcerations. She does have some bruising on her right arm, presumably from her previous IV attempts. EXTREMITIES: Examination of the lower extremities reveals palpable femoral pulses. She does have some mild lower extremity edema. She has no ischemic ulcerations. NEUROLOGICAL: Grossly nonfocal. MUSCULOSKELETAL: Benign. CHEST: Examination of her chest does reveal a left mastectomy. She has had her pacemaker removed and it looks like she has a new incision on her right chest from new pacemaker placement. LABORATORY DATA: Her hemoglobin is 7.7. 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 I talked to her about the risks, benefits, and alternatives of a venogram with possible intervention in order to place a PICC line. She is agreeable to placement on the right side as well as the left. CHEESE MAKER/CHYNA Sinan Monge M.D. / [id number] CC: Harjinder Ward M.D.
--- NOTE | ~2016-12-14 | IDS ---
Interim Discharge Summary [facility] [address] [place]. [address] NAME: ROSA SAMUEL : 49 STATUS : ADM IN [facility]#: [id number] AGE: 71 ADM/REG DATE : 12/15/16 MR#: [id number] REPORT SERV DATE: 01/10/17 DICTATED BY: CASSIUS FISCHER DATE: 01/10/17 REPORT STATUS : Draft TRANSCRIBED BY: MODL DATE: 01/10/17 ADMISSION DATE: 12/15/2016 DISCHARGE DATE: CONSULTANTS: Dr. Jay Loving, Infectious Disease; Dr. Titus Nugent, Electrophysiology; Dr. Brandon Prado, Cardiothoracic Surgery. PROBLEM LIST: 1. 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 2. Metabolic encephalopathy due to sepsis and lack of sleep in the intensive care, now improving. 3. Sick sinus syndrome with atrial fibrillation. 4. Diabetes mellitus type 2 with A1c 6.8%. 5. Anemia of chronic disease, plus blood draws. 6. Thrombocytopenia since 10/2016. 7. Hypertension. 8. Obesity with body mass index 43. 9. Previous left-sided breast cancer with mastectomy in 1997 with proven metastasis to bone in 10/2016. 10.Coronary bypass 2008. HISTORY: This patient had been hospitalized 10/26/2016 through 11/11/2016 with MRSA sepsis of unclear source. She also was found to have metastatic breast cancer with bone biopsy positive. She was seen by Dr. So and placed on letrozole. Infectious Disease, Dr. Loving saw the patient at that time, and she was placed on vancomycin, which was to be completed on 12/07/2016 through a PICC line. She was discharged to [facility] and was brought back to the emergency room at [facility] with complaints of difficulty breathing, hypoxia, fever. She did experience atrial fibrillation with rapid ventricular response. She also was noted to have blood cultures x2 positive for methicillin-resistant Staph aureus. Two sets were positive on 12/23/2016, two sets were positive for MRSA on 12/26/2016. She spiked fevers up to 103. There was concern for endocarditis or infection of the pacemaker. Echocardiogram 12/24/2016, was technically difficult. Estimated ejection fraction of left ventricle was 55%. There was a mobile echodensity attached to the pacemaker wire in the right atrium, suspected to be a vegetation. It was therefore felt that the patient would need removal of her pacemaker. She was seen by surgeon Dr. Brandon Prado and on 12/30/2016, had extraction of the right atrial and right ventricular leads with permanent pacer removal, pocket debridement, and VAC placement. She had a temporary catheter placed for pacing and went back to the operating room on 01/01/2017 for delayed primary closure. Then she was taken for a new pacemaker placement in her right chest on 01/06/2017, by Dr. Robert Nugent and tolerated this well. The patient is recommended to complete a course of IV vancomycin through 02/06/2017, she is currently receiving it through a PICC line in her right upper extremity. She has mild edema in her right upper extremity. She has moderate edema in that left upper extremity. The Interim Discharge Summary [facility] [id number] [place]. [address] NAME: ROSA SAMUEL : 49 STATUS : ADM IN [facility]#: [id number] AGE: 71 ADM/REG DATE : 12/15/16 MR#: [id number] REPORT SERV DATE: 01/10/17 DICTATED BY: CASSIUS FISCHER DATE: 01/10/17 REPORT STATUS : Draft TRANSCRIBED BY: CHYNA DATE: 01/10/17 left upper extremity is on the side where she had her previous mastectomy and we are asking her family to bring in her sleeve for compression. While in the intensive care, she did not get much rest and going through sepsis. She developed metabolic encephalopathy with some paranoia. Now out of the ICU, she is sleeping better, she is much clearer mentally, been very cooperative. She has had some dysuria but repeat urinalysis unremarkable and her dysuria spontaneously cleared. She has anemia of chronic disease but it is stable mostly due to her infection and blood draws. She had some thrombocytopenia that has been present since October of this year and will need to be monitored on an ongoing basis, could be on the basis of her metastatic breast cancer and medications and illness. Anticipated she will need to go back to rehab in the few days for completion of her antibiotics and physical therapy. CRISTINE/CHYNA Cassius Fischer M.D. / [id number] CC: Cassius Fischer M.D.
--- NOTE | ~2016-12-14 | IDS ---
Interim Discharge Summary [facility] [address] [place]. [address] NAME: ROSA SAMUEL : 49 STATUS : ADM IN [facility]#: [id number] AGE: 71 ADM/REG DATE : 12/15/16 MR#: [id number] REPORT SERV DATE: 01/04/17 DICTATED BY: DIONNE GILL DATE: 01/04/17 REPORT STATUS : Draft TRANSCRIBED BY: MODAmber DATE: 01/04/17 ADMISSION DATE: 12/15/2016 DISCHARGE DATE: This interim discharge is for service date 12/29/2016 to 01/04/2017. PROBLEM LIST: 1. Methicillin-resistant Staphylococcus aureus sepsis with infected devices, status post temporary pacer insertion, then old pacemaker lead was extracted. Now, the patient is going to permanent pacer insertion with Dr. Nugent. The patient was remaining on vancomycin IV. The patient will need vancomycin until 02/06/2017. 2. Diabetes mellitus. 3. Breast cancer stage IV. 4. Heart failure, chronic. 5. Morbid obesity. BMI 43. 6. Sleep apnea. The patient is compliant with BiPAP use. 7. History of sick sinus syndrome requiring permanent pacemaker. 8. Chronic hypoxic respiratory failure with 2 L of oxygen, stable. 9. Chronic anemia. Need to watch H and H's. No evidence of bleeding. 10.Constipation. HISTORY OF PRESENT ILLNESS: This is a 71-year-old female patient, who had multiple medical problems including recent MRSA bacteremia without clear source of infection, came back to the hospital with shortness of breath on 12/15/2016. At that time, she was admitted to the hospital with heart failure. Please see dictated H and P. HOSPITAL COURSE: She was admitted to the hospital with heart failure treatment and she was found to have recurrent MRSA bacteremia. Please see dictated consultation note from Dr. Loving. After the investigation, the patient was found to have probably the device infection and recurrent MRSA bacteremia. Therefore, the patient was decided to have device removal. Please see dictated record of operation from Dr. Prado. On Wednesday last week, she went to have a temporary pacer insertion with Dr. Nugent and the next day, she went to the OR with Dr. Prado to get her pacemaker extracted. The culture from the pocket is growing MRSA as well and then she has been staying in the [facility] and waiting for new pacemaker insertion. One more time, she went back to the OR to get her pockets being closed. She has been stable while she is in the [facility]. The only clinical change was having constipation and she remains in stable condition. Finally, had a bowel movement yesterday and she is waiting for her pacemaker insert. Dr. Loving recommended continuing vancomycin IV until 02/06/2017. After the pacemaker is inserted, need to find out disposition and plan. Interim Discharge Summary [address] [address] NAME: ROSA SAMUEL : 49 STATUS : ADM IN [facility]#: [id number] AGE: 71 ADM/REG DATE : 12/15/16 MR#: [id number] REPORT SERV DATE: 01/04/17 DICTATED BY: DIONNE GILL DATE: 01/04/17 REPORT STATUS : Draft TRANSCRIBED BY: CHYNA DATE: 01/04/17 EKAmber/CHYNA Dionne Gill M.D. / [id number] CC: Dionne Gill M.D.
--- NOTE | ~2016-12-14 | OP ---
Record Of Operation [facility] [address] [place]. [address] NAME: ROSA SAMUEL : 49 STATUS : ADM IN [facility]#: [id number] AGE: 71 ADM/REG DATE : 12/15/16 MR#: [id number] REPORT SERV DATE: 01/15/17 DICTATED BY: SINAN MONGE DATE: 01/14/17 REPORT STATUS : Draft TRANSCRIBED BY: CHYNA DATE: 01/14/17 DATE OF PROCEDURE: 01/14/2017 PREOPERATIVE DIAGNOSES: 1. Recent pacemaker infection. 2. Central venous stenosis. 3. Left upper extremity edema. 4. Phlebosclerosis. POSTOPERATIVE DIAGNOSES: 1. Recent pacemaker infection. 2. Central venous stenosis. 3. Left upper extremity edema. 4. Phlebosclerosis. PROCEDURE: 1. Ultrasound-guided access of the right cephalic vein. 2. Right upper extremity venogram. 3. Percutaneous angioplasty of the right subclavian vein using a 7 mm balloon. 4. PICC line placement. RICE [employer] MECHANIC: None. ANESTHESIA: Local and sedation. INDICATIONS: The patient is a 71-year-old female, who has been hospitalized for most of the past three months. She recently had a pacemaker removed and a new pacemaker placed. She needs long-term access for her medication administration. The PICC nurses have attempted catheter placement at the bedside and under fluoroscopy. They have been unsuccessful. Thus, I was asked to place a PICC line. DESCRIPTION OF PROCEDURE: After informed consent was obtained, the patient was taken to the operating room and placed in the supine position on the operating table. Monitored anesthesia was administered. The patient's right upper extremity was prepped and draped in usual sterile fashion. Ultrasound-guided access was obtained of the right cephalic vein. The ultrasound images documented on the chart. I passed a wire centrally. I placed a peel- away sheath. I estimated the catheter length. I cut the catheter and attempted to advance it into the subclavian vein over a wire. I was unsuccessful. I therefore obtained a venogram that demonstrated a stenosis at the right subclavian vein at the pacemaker wire insertion site. I angioplastied this region with a 7 mm balloon with a great result. I then was able to insert the catheter, which incidentally was cut to 40 cm in length, under fluoroscopy. I confirmed that the tip was in the right atrium. I withdrew my peel-away sheath. I sutured the catheter in place and applied a sterile dressing. Both ports were flushed easily. The patient tolerated the procedure well without any intraprocedural complications noted. Record Of Operation [facility] [id number] [place]. [address] NAME: ROSA SAMUEL : 49 STATUS : ADM IN [facility]#: [id number] AGE: 71 ADM/REG DATE : 12/15/16 MR#: [id number] REPORT SERV DATE: 01/15/17 DICTATED BY: SINAN MONGE DATE: 01/14/17 REPORT STATUS : Draft TRANSCRIBED BY: CHYNA DATE: 01/14/17 HOT IRON WORKER/CHYNA Sinan Monge M.D. / [id number] CC: Harjinder Ward M.D.
[~2016-12-14 21:18] MED LIST changes: +*UNABLE1; +COUMADIN6 MG PO; +FLEX PO; +JANUMET1 TA1 PO; +PEP20 PO; +ZETIA PO; +ZOCOR20 PO; +ZOL100 PO
[2016-12-14 22:26] LABS: BASOPHILS 0.3 %; BASOPHILS ABSOLUTE 0.03 10/3/uL (0.0-0.16); EOSINOPHILS 0.5 %; EOSINOPHILS ABSOLUTE 0.05 10/3/uL (0.0-0.53); HEMATOCRIT 26.5 % (36.0-48.0); HEMOGLOBIN 7.9 g/dL (12.0-16.0); IMMATURE GRANULOCYTES 0.3 %; IMMATURE GRANULOCYTES ABSOLUTE 0.03 10/3/uL (0.0-0.11); LYMPHOCYTES ABSOLUTE 1.14 10/3/uL (0.67-4.30); MEAN CORPUS HGB CONC 29.8 g/dL (32.0-36.0); MEAN CORPUSCULAR HEMOGLOB 26.8 pg (26.0-34.0); MEAN CORPUSCULAR VOLUME 89.8 fL (80-100); MEAN PLATELET VOLUME 11.1 fL (9.2-13.0); MONOCYTES 4.9 %; MONOCYTES ABSOLUTE 0.47 10/3/uL (0.21-1.20); PLATELET COUNT 154 10/3/uL (150-400); RBC DISTRIBUTION WIDTH 19.5 % (12.0-16.0); RED CELL COUNT 2.95 10/6/uL (4.0-5.6)
[2016-12-14 22:27] LABS: ER CBC TAT 0 Hrs 07 Mins; MANUAL DIFF NO %; WHITE BLOOD CELLS 9.5 10/3/uL (4.5-10.5)
[2016-12-14 22:28] LABS: ALLENS TEST Pos; BE (BASE EXCESS) 4.1 MEQ/L (0 +/- 2.5); DEVICE NC; HEMOBLOGIN CONTENT 8.7 G/DL (12-16); INSTRUMENT SERIAL # 8087; METHEMOGLOBIN 0.3 % (0-3); PCO2 (CO2 TENSION) 39 MMHG (35-45); PO2 (O2 TENSION) 66 MMHG (79-93); SAMPLE Arterial; pH 7.48 (7.37-7.43)
[2016-12-14 22:35] LABS: INTERNATIONAL NORMAL RATI 1.5 UNITS (-)
[2016-12-14 22:41] LABS: PROTIME (NOT ORD) 17.5 SEC (12.0-14.5)
[2016-12-14 22:43] LABS: ALBUMIN 2.5 G/DL (3.5-5.0); BUN (BLOOD UREA NITROGEN) 19 MG/DL (6-23); CALCIUM, SERUM 8.5 MG/DL (8.5-10.4); CHLORIDE, SERUM 102 MMOL/L (96-112); CO2 (CARBON DIOXIDE) 27 MMOL/L (24-34); CREATININE 1.24 MG/DL (0.55-1.02); GFR AFRICAN AMERICAN 51 ML/MIN (>=60); GFR NON AFRICAN AMERICAN 44 ML/MIN (>=60); GLUCOSE, SERUM 184 MG/DL (60-99); SGPT(ALT) 15 U/L (5-65); SODIUM, SERUM 138 MMOL/L (135-148); TOTAL PROTEIN 7.2 G/DL (6.0-8.5)
[2016-12-14 22:44] LABS: A/G RATIO 0.5 (0.7-1.9); ALKALINE PHOSPHATASE 190 U/L (45-117); GLOBULIN 4.7 G/DL (2.5-4.1); POTASSIUM, SERUM 5.1 MMOL/L (3.5-5.3); SGOT(AST) 45 U/L (5-40)
[2016-12-14 22:50] LABS: LACTATE 1.4 MMOL/L (0.3-2.4)
[2016-12-14 22:57] LABS: ASCORBIC ACID (UR NOT ORDER) NEG (NEG); BILIRUBIN, URINE NEGATIVE (NEG); ER URINALYSIS TAT 0 Hrs 10 Mins; KETONE, URINE NEGATIVE (NEG); LEUKOCYTE ESTERASE(NOT OR MOD (NEG); NITRITE (URINE) NEG (NEG); WBC (NOT ORDERED) (RFLEX) 129 (0-5)
[2016-12-15] MEDS ORDERED: COUMADIN3 MG PO (00:01)
[2016-12-15] MEDS ORDERED: HUMALOG SC (00:01)
[2016-12-15] MEDS ORDERED: DUONEB INH (00:02)
[2016-12-15] MEDS ORDERED: CALTRA600D PO (00:02)
[2016-12-15] MEDS ORDERED: T PO (00:04)
[2016-12-15] MEDS ORDERED: BISR PR (00:05)
[2016-12-15] MEDS ORDERED: GLUCAGON IM (00:05)
[2016-12-15] MEDS ORDERED: HUMALOG (00:07)
[2016-12-15] MEDS ORDERED: ZOFRAN ODT4 MG PO/SL (00:08)
[2016-12-15] MEDS ORDERED: PR12.5R PR (00:08)
[2016-12-15] MEDS ORDERED: METPAKSF PO (00:08)
[2016-12-15] MEDS ORDERED: KAOPECTATE262 MG/15 PO (00:09)
[2016-12-15] MEDS ORDERED: SPIRO25 PO (00:09)
[2016-12-15] MEDS ORDERED: SUCR PO (00:09)
[2016-12-15] MEDS ORDERED: MYTAB GAS80 MG PO (00:09)
[2016-12-15] MEDS ORDERED: CONSTULOSE PO ×2 (00:10→00:14)
[2016-12-15] MEDS ORDERED: ZOL100 PO (00:10)
[2016-12-15] MEDS ORDERED: FEMARA PO (00:10)
[2016-12-15] MEDS ORDERED: BASAGLAR K100 UNIT/1 SC (00:10)
[2016-12-15] MEDS ORDERED: MAGOX4 PO (00:11)
[2016-12-15] MEDS ORDERED: COREG3 PO (00:11)
[2016-12-15] MEDS ORDERED: BUM1 PO (00:11)
[2016-12-15] MEDS ORDERED: PRIN10 PO (00:11)
[2016-12-15] MEDS ORDERED: NEXIUM40 PO (00:12)
[2016-12-15] MEDS ORDERED: PEP20 PO (00:12)
[2016-12-15] MEDS ORDERED: DSS PO (00:12)
[2016-12-15] MEDS ORDERED: MOMUD PO (00:13)
[2016-12-15] MEDS ORDERED: FLEX PO (00:13)
[2016-12-15] MEDS ORDERED: SILTUSSIN DM PO (00:14)
[2016-12-15 01:59] LABS: TROPONIN I 0.04 NG/ML (<0.05)
[2016-12-15 03:40] LABS: CPK 29 U/L (0-200)
[2016-12-15 03:42] LABS: CK-MB < 0.5 NG/ML
[2016-12-15 09:16] LABS: HEMATOCRIT 25.3 % (36.0-48.0); HEMOGLOBIN 7.6 g/dL (12.0-16.0); MANUAL DIFF YES %; MEAN CORPUSCULAR HEMOGLOB 27.1 pg (26.0-34.0); MEAN CORPUSCULAR VOLUME 90.4 fL (80-100); MEAN PLATELET VOLUME 11.6 fL (9.2-13.0); PLATELET COUNT 164 10/3/uL (150-400); RBC DISTRIBUTION WIDTH 19.3 % (12.0-16.0); WHITE BLOOD CELLS 6.6 10/3/uL (4.5-10.5)
[2016-12-15 09:23] LABS: INTERNATIONAL NORMAL RATI 1.6 UNITS (-); PROTIME (NOT ORD) 18.8 SEC (12.0-14.5)
[2016-12-15 09:46] LABS: BUN (BLOOD UREA NITROGEN) 19 MG/DL (6-23); CALCIUM, SERUM 8.6 MG/DL (8.5-10.4); CHLORIDE, SERUM 103 MMOL/L (96-112); CO2 (CARBON DIOXIDE) 28 MMOL/L (24-34); CPK 37 U/L (0-200); CREATININE 1.14 MG/DL (0.55-1.02); GFR AFRICAN AMERICAN 57 ML/MIN (>=60); GFR NON AFRICAN AMERICAN 49 ML/MIN (>=60); GLUCOSE, SERUM 156 MG/DL (60-99); SODIUM, SERUM 141 MMOL/L (135-148); TROPONIN I 0.04 NG/ML (<0.05)
[2016-12-15 09:47] LABS: CK-MB < 0.5 NG/ML; POTASSIUM, SERUM 3.7 MMOL/L (3.5-5.3)
[2016-12-15 09:49] LABS: ANISOCYTOSIS 1+ (5-10/OIF) (0-5/OIF); BAND NEUTROPHILS 5 %; EOSINOPHILS 1 %; EOSINOPHILS ABSOLUTE (CALC) 0.07 10/3/uL (0.0-0.53); LYMPHOCYTES 13 %; LYMPHOCYTES ABSOLUTE (CALC) 0.86 10/3/uL (0.67-4.30); NEUTROPHILS ABSOLUTE (CALC) 5.68 10/3/uL (2.02-8.40); PLATELET ESTIMATE ADQ (ADEQUATE); SEGMENTED NEUTROPHIL (0) 81 %; TOTAL NUCLEATED CELLS 100
[2016-12-15 09:50] LABS: POLYCHROMASIA 1+ (2-5/OIF) (0-1/OIF)
[2016-12-16 06:02] LABS: BASOPHILS 0.4 %; BASOPHILS ABSOLUTE 0.02 10/3/uL (0.0-0.16); EOSINOPHILS 4.4 %; EOSINOPHILS ABSOLUTE 0.23 10/3/uL (0.0-0.53); HEMOGLOBIN 7.1 g/dL (12.0-16.0); IMMATURE GRANULOCYTES 0.4 %; IMMATURE GRANULOCYTES ABSOLUTE 0.02 10/3/uL (0.0-0.11); LYMPHOCYTES 12.9 %; LYMPHOCYTES ABSOLUTE 0.68 10/3/uL (0.67-4.30); MEAN CORPUS HGB CONC 29.6 g/dL (32.0-36.0); MEAN CORPUSCULAR VOLUME 91.3 fL (80-100); MONOCYTES 4.9 %; MONOCYTES ABSOLUTE 0.26 10/3/uL (0.21-1.20); NEUTROPHILS ABSOLUTE 4.05 10/3/uL (2.02-8.40); PLATELET COUNT 143 10/3/uL (150-400); RBC DISTRIBUTION WIDTH 19.6 % (12.0-16.0); RED CELL COUNT 2.63 10/6/uL (4.0-5.6); WHITE BLOOD CELLS 5.3 10/3/uL (4.5-10.5)
[2016-12-16 06:03] LABS: MANUAL DIFF NO %
[2016-12-16 06:04] LABS: INTERNATIONAL NORMAL RATI 1.5 UNITS (-); PROTIME (NOT ORD) 18.3 SEC (12.0-14.5)
[2016-12-16 06:16] LABS: BUN (BLOOD UREA NITROGEN) 18 MG/DL (6-23); CALCIUM, SERUM 8.9 MG/DL (8.5-10.4); CHLORIDE, SERUM 103 MMOL/L (96-112); CO2 (CARBON DIOXIDE) 30 MMOL/L (24-34); CREATININE 0.97 MG/DL (0.55-1.02); GFR AFRICAN AMERICAN 69 ML/MIN (>=60); GFR NON AFRICAN AMERICAN 60 ML/MIN (>=60); POTASSIUM, SERUM 3.6 MMOL/L (3.5-5.3); SODIUM, SERUM 140 MMOL/L (135-148)
[2016-12-16 06:17] LABS: GLUCOSE, SERUM 67 MG/DL (60-99)
[2016-12-16 16:56] LABS: HEMATOCRIT 26.1 % (36.0-48.0); HEMOGLOBIN 7.6 g/dL (12.0-16.0)
[2016-12-17 06:36] LABS: BASOPHILS 0.4 %; BASOPHILS ABSOLUTE 0.02 10/3/uL (0.0-0.16); EOSINOPHILS 3.4 %; EOSINOPHILS ABSOLUTE 0.17 10/3/uL (0.0-0.53); HEMATOCRIT 24.4 % (36.0-48.0); HEMOGLOBIN 7.2 g/dL (12.0-16.0); IMMATURE GRANULOCYTES 0.2 %; IMMATURE GRANULOCYTES ABSOLUTE 0.01 10/3/uL (0.0-0.11); LYMPHOCYTES 18.5 %; LYMPHOCYTES ABSOLUTE 0.92 10/3/uL (0.67-4.30); MEAN CORPUS HGB CONC 29.5 g/dL (32.0-36.0); MEAN CORPUSCULAR VOLUME 91.4 fL (80-100); MEAN PLATELET VOLUME 10.8 fL (9.2-13.0); MONOCYTES 5.4 %; MONOCYTES ABSOLUTE 0.27 10/3/uL (0.21-1.20); NEUTROPHILS 72.1 %; NEUTROPHILS ABSOLUTE 3.59 10/3/uL (2.02-8.40); PLATELET COUNT 132 10/3/uL (150-400); RBC DISTRIBUTION WIDTH 19.2 % (12.0-16.0); RED CELL COUNT 2.67 10/6/uL (4.0-5.6)
[2016-12-17 06:37] LABS: MANUAL DIFF NO %
[2016-12-17 06:42] LABS: INTERNATIONAL NORMAL RATI 1.6 UNITS (-); PROTIME (NOT ORD) 18.7 SEC (12.0-14.5)
[2016-12-17 06:47] LABS: BUN (BLOOD UREA NITROGEN) 19 MG/DL (6-23); CALCIUM, SERUM 8.3 MG/DL (8.5-10.4); CHLORIDE, SERUM 104 MMOL/L (96-112); CO2 (CARBON DIOXIDE) 31 MMOL/L (24-34); CREATININE 1.13 MG/DL (0.55-1.02); GFR AFRICAN AMERICAN 57 ML/MIN (>=60); GFR NON AFRICAN AMERICAN 50 ML/MIN (>=60); SODIUM, SERUM 142 MMOL/L (135-148)
[2016-12-17 06:48] LABS: GLUCOSE, SERUM 127 MG/DL (60-99)
[2016-12-18 05:18] LABS: BASOPHILS 0.4 %; BASOPHILS ABSOLUTE 0.02 10/3/uL (0.0-0.16); EOSINOPHILS 4.6 %; EOSINOPHILS ABSOLUTE 0.25 10/3/uL (0.0-0.53); HEMATOCRIT 27.4 % (36.0-48.0); HEMOGLOBIN 8.1 g/dL (12.0-16.0); IMMATURE GRANULOCYTES 0.2 %; IMMATURE GRANULOCYTES ABSOLUTE 0.01 10/3/uL (0.0-0.11); LYMPHOCYTES 16.6 %; MANUAL DIFF NO %; MEAN CORPUS HGB CONC 29.6 g/dL (32.0-36.0); MEAN CORPUSCULAR VOLUME 91.3 fL (80-100); MEAN PLATELET VOLUME 10.5 fL (9.2-13.0); MONOCYTES 7.2 %; MONOCYTES ABSOLUTE 0.39 10/3/uL (0.21-1.20); NEUTROPHILS ABSOLUTE 3.84 10/3/uL (2.02-8.40); PLATELET COUNT 147 10/3/uL (150-400); RBC DISTRIBUTION WIDTH 19.3 % (12.0-16.0); WHITE BLOOD CELLS 5.4 10/3/uL (4.5-10.5)
[2016-12-18 05:22] LABS: INTERNATIONAL NORMAL RATI 1.4 UNITS (-); PROTIME (NOT ORD) 16.8 SEC (12.0-14.5)
[2016-12-18 05:28] LABS: BUN (BLOOD UREA NITROGEN) 21 MG/DL (6-23); CALCIUM, SERUM 8.8 MG/DL (8.5-10.4); CHLORIDE, SERUM 103 MMOL/L (96-112); CO2 (CARBON DIOXIDE) 32 MMOL/L (24-34); GFR AFRICAN AMERICAN 59 ML/MIN (>=60); GFR NON AFRICAN AMERICAN 51 ML/MIN (>=60); POTASSIUM, SERUM 4.6 MMOL/L (3.5-5.3); SODIUM, SERUM 141 MMOL/L (135-148)
[2016-12-18 05:31] LABS: GLUCOSE, SERUM 133 MG/DL (60-99)
[2016-12-18 19:35] LABS: BE (BASE EXCESS) 7.1 MEQ/L (0 +/- 2.5); CARBOXYHEMOGLOBIN 1.1 % (0-3); HCO3 (ACTUAL BICARBONATE) 31.9 MEQ/L (23-27); HEMOBLOGIN CONTENT 8.5 G/DL (12-16); INSTRUMENT SERIAL # 11843; METHEMOGLOBIN 0.5 % (0-3); O2 CONTENT 11.6 VOL% (18-24); OPERATOR ID 16503; PCO2 (CO2 TENSION) 47 MMHG (35-45); PO2 (O2 TENSION) 98 MMHG (79-93); SAMPLE Arterial; pH 7.45 (7.37-7.43)
[2016-12-18 19:36] LABS: ALLENS TEST Pos; DEVICE NC
[2016-12-18 20:26] LABS: BASOPHILS 0.2 %; BASOPHILS ABSOLUTE 0.01 10/3/uL (0.0-0.16); EOSINOPHILS 3.5 %; EOSINOPHILS ABSOLUTE 0.21 10/3/uL (0.0-0.53); IMMATURE GRANULOCYTES 0.2 %; IMMATURE GRANULOCYTES ABSOLUTE 0.01 10/3/uL (0.0-0.11); LYMPHOCYTES 14.5 %; LYMPHOCYTES ABSOLUTE 0.86 10/3/uL (0.67-4.30); MEAN CORPUS HGB CONC 29.5 g/dL (32.0-36.0); MEAN CORPUSCULAR HEMOGLOB 27.1 pg (26.0-34.0); MEAN CORPUSCULAR VOLUME 91.7 fL (80-100); MEAN PLATELET VOLUME 10.3 fL (9.2-13.0); MONOCYTES 4.9 %; MONOCYTES ABSOLUTE 0.29 10/3/uL (0.21-1.20); NEUTROPHILS 76.7 %; NEUTROPHILS ABSOLUTE 4.57 10/3/uL (2.02-8.40); PLATELET COUNT 137 10/3/uL (150-400); RBC DISTRIBUTION WIDTH 19.4 % (12.0-16.0)
[2016-12-18 20:27] LABS: HEMOGLOBIN 6.2 g/dL (12.0-16.0); RED CELL COUNT 2.29 10/6/uL (4.0-5.6)
[2016-12-18 20:28] LABS: MANUAL DIFF NO %
[2016-12-18 20:37] LABS: BUN (BLOOD UREA NITROGEN) 22 MG/DL (6-23); CALCIUM, SERUM 8.4 MG/DL (8.5-10.4); CHLORIDE, SERUM 101 MMOL/L (96-112); CO2 (CARBON DIOXIDE) 34 MMOL/L (24-34); CREATININE 1.41 MG/DL (0.55-1.02); GFR AFRICAN AMERICAN 44 ML/MIN (>=60); GFR NON AFRICAN AMERICAN 38 ML/MIN (>=60); GLUCOSE, SERUM 149 MG/DL (60-99); SODIUM, SERUM 141 MMOL/L (135-148)
[2016-12-19 12:00] LABS: MEAN CORPUS HGB CONC 30.1 g/dL (32.0-36.0); MEAN CORPUSCULAR HEMOGLOB 27.1 pg (26.0-34.0); MEAN CORPUSCULAR VOLUME 90.3 fL (80-100); MEAN PLATELET VOLUME 10.6 fL (9.2-13.0); PLATELET COUNT 139 10/3/uL (150-400); RBC DISTRIBUTION WIDTH 19.1 % (12.0-16.0)
[2016-12-19 12:01] LABS: HEMATOCRIT 30.6 % (36.0-48.0); HEMOGLOBIN 9.2 g/dL (12.0-16.0); MANUAL DIFF YES %; RED CELL COUNT 3.39 10/6/uL (4.0-5.6)
[2016-12-19 12:08] LABS: INTERNATIONAL NORMAL RATI 1.5 UNITS (-); PROTIME (NOT ORD) 17.7 SEC (12.0-14.5)
[2016-12-19 12:10] LABS: BUN (BLOOD UREA NITROGEN) 25 MG/DL (6-23); CALCIUM, SERUM 8.7 MG/DL (8.5-10.4); CHLORIDE, SERUM 101 MMOL/L (96-112); CO2 (CARBON DIOXIDE) 34 MMOL/L (24-34); CREATININE 1.37 MG/DL (0.55-1.02); GFR AFRICAN AMERICAN 45 ML/MIN (>=60); GFR NON AFRICAN AMERICAN 39 ML/MIN (>=60); GLUCOSE, SERUM 133 MG/DL (60-99); POTASSIUM, SERUM 4.1 MMOL/L (3.5-5.3); SODIUM, SERUM 140 MMOL/L (135-148)
[2016-12-19 12:29] LABS: ANISOCYTOSIS 1+ (5-10/OIF) (0-5/OIF); BAND NEUTROPHILS 3 %; EOSINOPHILS 5 %; EOSINOPHILS ABSOLUTE (CALC) 0.35 10/3/uL (0.0-0.53); LYMPHOCYTES 12 %; LYMPHOCYTES ABSOLUTE (CALC) 0.84 10/3/uL (0.67-4.30); MACROCYTES 1+ (5-10/OIF) (0-5/OIF); MONOCYTES 3 %; MONOCYTES ABSOLUTE (CALC) 0.21 10/3/uL (0.21-1.20); PLATELET ESTIMATE SLT DEC (ADEQUATE); SEGMENTED NEUTROPHIL (0) 77 %; TOTAL NUCLEATED CELLS 100
[2016-12-19 12:30] LABS: HYPOCHROMIA 1+ (3-10/OIF) (0-2/OIF)
[2016-12-20 06:24] LABS: BASOPHILS 0.1 %; BASOPHILS ABSOLUTE 0.01 10/3/uL (0.0-0.16); EOSINOPHILS 3.5 %; EOSINOPHILS ABSOLUTE 0.25 10/3/uL (0.0-0.53); HEMATOCRIT 31.5 % (36.0-48.0); HEMOGLOBIN 9.4 g/dL (12.0-16.0); IMMATURE GRANULOCYTES 0.1 %; IMMATURE GRANULOCYTES ABSOLUTE 0.01 10/3/uL (0.0-0.11); LYMPHOCYTES 15.7 %; LYMPHOCYTES ABSOLUTE 1.11 10/3/uL (0.67-4.30); MANUAL DIFF NO %; MEAN CORPUS HGB CONC 29.8 g/dL (32.0-36.0); MEAN CORPUSCULAR VOLUME 90.5 fL (80-100); MEAN PLATELET VOLUME 11.2 fL (9.2-13.0); MONOCYTES 5.1 %; MONOCYTES ABSOLUTE 0.36 10/3/uL (0.21-1.20); NEUTROPHILS 75.5 %; NEUTROPHILS ABSOLUTE 5.35 10/3/uL (2.02-8.40); PLATELET COUNT 145 10/3/uL (150-400); RBC DISTRIBUTION WIDTH 18.9 % (12.0-16.0); RED CELL COUNT 3.48 10/6/uL (4.0-5.6); WHITE BLOOD CELLS 7.1 10/3/uL (4.5-10.5)
[2016-12-20 06:30] LABS: INTERNATIONAL NORMAL RATI 1.6 UNITS (-); PROTIME (NOT ORD) 18.8 SEC (12.0-14.5)
[2016-12-20 06:43] LABS: BUN (BLOOD UREA NITROGEN) 25 MG/DL (6-23); CALCIUM, SERUM 9.1 MG/DL (8.5-10.4); CHLORIDE, SERUM 102 MMOL/L (96-112); CO2 (CARBON DIOXIDE) 37 MMOL/L (24-34); GFR AFRICAN AMERICAN 59 ML/MIN (>=60); GFR NON AFRICAN AMERICAN 51 ML/MIN (>=60); POTASSIUM, SERUM 3.9 MMOL/L (3.5-5.3); SODIUM, SERUM 141 MMOL/L (135-148)
[2016-12-20 06:44] LABS: GLUCOSE, SERUM 63 MG/DL (60-99)
[2016-12-21 05:25] LABS: INTERNATIONAL NORMAL RATI 1.8 UNITS (-)
[2016-12-22 04:29] LABS: BASOPHILS 0.2 %; BASOPHILS ABSOLUTE 0.01 10/3/uL (0.0-0.16); EOSINOPHILS 3.4 %; EOSINOPHILS ABSOLUTE 0.21 10/3/uL (0.0-0.53); HEMATOCRIT 29.8 % (36.0-48.0); HEMOGLOBIN 8.9 g/dL (12.0-16.0); IMMATURE GRANULOCYTES 0.3 %; IMMATURE GRANULOCYTES ABSOLUTE 0.02 10/3/uL (0.0-0.11); LYMPHOCYTES ABSOLUTE 0.98 10/3/uL (0.67-4.30); MANUAL DIFF NO %; MEAN CORPUS HGB CONC 29.9 g/dL (32.0-36.0); MEAN CORPUSCULAR HEMOGLOB 27.2 pg (26.0-34.0); MEAN CORPUSCULAR VOLUME 91.1 fL (80-100); MEAN PLATELET VOLUME 10.3 fL (9.2-13.0); MONOCYTES 5.6 %; MONOCYTES ABSOLUTE 0.34 10/3/uL (0.21-1.20); NEUTROPHILS 74.5 %; NEUTROPHILS ABSOLUTE 4.56 10/3/uL (2.02-8.40); PLATELET COUNT 125 10/3/uL (150-400); RBC DISTRIBUTION WIDTH 18.2 % (12.0-16.0); RED CELL COUNT 3.27 10/6/uL (4.0-5.6); WHITE BLOOD CELLS 6.1 10/3/uL (4.5-10.5)
[2016-12-22 04:35] LABS: INTERNATIONAL NORMAL RATI 2.1 UNITS (-); PROTIME (NOT ORD) 23.1 SEC (12.0-14.5)
[2016-12-22 04:44] LABS: CALCIUM, SERUM 9.3 MG/DL (8.5-10.4); CHLORIDE, SERUM 103 MMOL/L (96-112); CO2 (CARBON DIOXIDE) 33 MMOL/L (24-34); CREATININE 1.02 MG/DL (0.55-1.02); GFR AFRICAN AMERICAN 65 ML/MIN (>=60); GFR NON AFRICAN AMERICAN 56 ML/MIN (>=60); POTASSIUM, SERUM 4.3 MMOL/L (3.5-5.3); SODIUM, SERUM 141 MMOL/L (135-148)
[2016-12-22 04:58] LABS: BUN (BLOOD UREA NITROGEN) 20 MG/DL (6-23); GLUCOSE, SERUM 87 MG/DL (60-99)
[2016-12-22 16:45] LABS: ASCORBIC ACID (UR NOT ORDER) NEG (NEG); BILIRUBIN, URINE NEGATIVE (NEG); KETONE, URINE NEGATIVE (NEG); LEUKOCYTE ESTERASE(NOT OR NEG (NEG); WBC (NOT ORDERED) (RFLEX) 1 (0-5)
[2016-12-22 23:35] LABS: ALLENS TEST Pos; BE (BASE EXCESS) 3.6 MEQ/L (0 +/- 2.5); CARBOXYHEMOGLOBIN 1.1 % (0-3); DEVICE home cpap + 4l; INSTRUMENT SERIAL # 11843; METHEMOGLOBIN 0.4 % (0-3); O2 CONTENT 14.1 VOL% (18-24); OPERATOR ID 17370; PCO2 (CO2 TENSION) 37 MMHG (35-45); PO2 (O2 TENSION) 66 MMHG (79-93); SAMPLE Arterial; pH 7.49 (7.37-7.43)
[2016-12-23 02:21] LABS: BASOPHILS 0.1 %; BASOPHILS ABSOLUTE 0.01 10/3/uL (0.0-0.16); EOSINOPHILS 0.4 %; EOSINOPHILS ABSOLUTE 0.04 10/3/uL (0.0-0.53); HEMOGLOBIN 9.4 g/dL (12.0-16.0); IMMATURE GRANULOCYTES 0.3 %; IMMATURE GRANULOCYTES ABSOLUTE 0.03 10/3/uL (0.0-0.11); LYMPHOCYTES 5.3 %; LYMPHOCYTES ABSOLUTE 0.53 10/3/uL (0.67-4.30); MANUAL DIFF NO %; MEAN CORPUS HGB CONC 30.3 g/dL (32.0-36.0); MEAN CORPUSCULAR HEMOGLOB 27.2 pg (26.0-34.0); MEAN CORPUSCULAR VOLUME 89.6 fL (80-100); MEAN PLATELET VOLUME 10.5 fL (9.2-13.0); MONOCYTES 3.2 %; MONOCYTES ABSOLUTE 0.32 10/3/uL (0.21-1.20); NEUTROPHILS 90.7 %; NEUTROPHILS ABSOLUTE 8.98 10/3/uL (2.02-8.40); PLATELET COUNT 129 10/3/uL (150-400); RED CELL COUNT 3.46 10/6/uL (4.0-5.6); WHITE BLOOD CELLS 9.9 10/3/uL (4.5-10.5)
[2016-12-23 02:28] LABS: INTERNATIONAL NORMAL RATI 2.4 UNITS (-); PROTIME (NOT ORD) 25.9 SEC (12.0-14.5)
[2016-12-23 02:32] LABS: BUN (BLOOD UREA NITROGEN) 22 MG/DL (6-23); CALCIUM, SERUM 8.9 MG/DL (8.5-10.4); CHLORIDE, SERUM 102 MMOL/L (96-112); CO2 (CARBON DIOXIDE) 30 MMOL/L (24-34); CREATININE 1.28 MG/DL (0.55-1.02); GFR AFRICAN AMERICAN 49 ML/MIN (>=60); GFR NON AFRICAN AMERICAN 43 ML/MIN (>=60); PHOSPHORUS, SERUM 2.2 MG/DL (2.5-4.5); POTASSIUM, SERUM 4.4 MMOL/L (3.5-5.3); SODIUM, SERUM 140 MMOL/L (135-148)
[2016-12-23 02:34] LABS: GLUCOSE, SERUM 187 MG/DL (60-99)
[2016-12-23 11:15] LABS: ALLENS TEST Pos; BE (BASE EXCESS) 5.3 MEQ/L (0 +/- 2.5); CARBOXYHEMOGLOBIN 1.1 % (0-3); HCO3 (ACTUAL BICARBONATE) 29.3 MEQ/L (23-27); HEMOBLOGIN CONTENT 10.7 G/DL (12-16); INSTRUMENT SERIAL # 8083; METHEMOGLOBIN 0.4 % (0-3); O2 CONTENT 14.3 VOL% (18-24); PCO2 (CO2 TENSION) 41 MMHG (35-45); PO2 (O2 TENSION) 77 MMHG (79-93); SAMPLE Arterial; pH 7.47 (7.37-7.43)
[2016-12-24 05:48] LABS: HEMATOCRIT 28.4 % (36.0-48.0); HEMOGLOBIN 8.4 g/dL (12.0-16.0); MEAN CORPUS HGB CONC 29.6 g/dL (32.0-36.0); MEAN CORPUSCULAR HEMOGLOB 26.8 pg (26.0-34.0); MEAN CORPUSCULAR VOLUME 90.7 fL (80-100); MEAN PLATELET VOLUME 11.3 fL (9.2-13.0); PLATELET COUNT 115 10/3/uL (150-400); RBC DISTRIBUTION WIDTH 18.6 % (12.0-16.0); RED CELL COUNT 3.13 10/6/uL (4.0-5.6); WHITE BLOOD CELLS 11.9 10/3/uL (4.5-10.5)
[2016-12-24 05:50] LABS: MANUAL DIFF YES %
[2016-12-24 05:55] LABS: INTERNATIONAL NORMAL RATI 3.8 UNITS (-)
[2016-12-24 05:56] LABS: PROTIME (NOT ORD) 36.8 SEC (12.0-14.5)
[2016-12-24 05:57] LABS: CALCIUM, SERUM 8.4 MG/DL (8.5-10.4); CHLORIDE, SERUM 103 MMOL/L (96-112); CO2 (CARBON DIOXIDE) 29 MMOL/L (24-34); POTASSIUM, SERUM 4.3 MMOL/L (3.5-5.3); SODIUM, SERUM 139 MMOL/L (135-148)
[2016-12-24 05:58] LABS: BUN (BLOOD UREA NITROGEN) 42 MG/DL (6-23); CREATININE 1.89 MG/DL (0.55-1.02); GFR AFRICAN AMERICAN 31 ML/MIN (>=60); GFR NON AFRICAN AMERICAN 27 ML/MIN (>=60); GLUCOSE, SERUM 392 MG/DL (60-99); PHOSPHORUS, SERUM 5.2 MG/DL (2.5-4.5)
[2016-12-24 06:42] LABS: PROCALCITONIN 20.51 ng/mL (<0.5)
[2016-12-24 06:43] LABS: ANISOCYTOSIS 1+ (5-10/OIF) (0-5/OIF); BAND NEUTROPHILS 29 %; LYMPHOCYTES 2 %; LYMPHOCYTES ABSOLUTE (CALC) 0.24 10/3/uL (0.67-4.30); MONOCYTES 1 %; MONOCYTES ABSOLUTE (CALC) 0.12 10/3/uL (0.21-1.20); NEUTROPHILS ABSOLUTE (CALC) 11.54 10/3/uL (2.02-8.40); PLATELET ESTIMATE SLT DEC (ADEQUATE); POLYCHROMASIA 1+ (2-5/OIF) (0-1/OIF); SEGMENTED NEUTROPHIL (0) 68 %; TOTAL NUCLEATED CELLS 100
[2016-12-25 05:21] LABS: BASOPHILS 0 %; EOSINOPHILS 0 %; HEMOGLOBIN 8.9 g/dL (12.0-16.0); IMMATURE GRANULOCYTES 0.4 %; IMMATURE GRANULOCYTES ABSOLUTE 0.05 10/3/uL (0.0-0.11); LYMPHOCYTES 5.8 %; LYMPHOCYTES ABSOLUTE 0.69 10/3/uL (0.67-4.30); MEAN CORPUS HGB CONC 29.7 g/dL (32.0-36.0); MEAN CORPUSCULAR HEMOGLOB 26.7 pg (26.0-34.0); MEAN CORPUSCULAR VOLUME 90.1 fL (80-100); MEAN PLATELET VOLUME 11.5 fL (9.2-13.0); MONOCYTES 2.3 %; MONOCYTES ABSOLUTE 0.27 10/3/uL (0.21-1.20); NEUTROPHILS 91.5 %; NEUTROPHILS ABSOLUTE 10.98 10/3/uL (2.02-8.40); PLATELET COUNT 112 10/3/uL (150-400); RBC DISTRIBUTION WIDTH 18.4 % (12.0-16.0); RED CELL COUNT 3.33 10/6/uL (4.0-5.6)
[2016-12-25 05:23] LABS: MANUAL DIFF NO %
[2016-12-25 05:25] LABS: INTERNATIONAL NORMAL RATI 4.4 UNITS (-); PROTIME (NOT ORD) 41.7 SEC (12.0-14.5)
[2016-12-25 05:39] LABS: CALCIUM, SERUM 8.6 MG/DL (8.5-10.4); CHLORIDE, SERUM 104 MMOL/L (96-112); CO2 (CARBON DIOXIDE) 28 MMOL/L (24-34); CREATININE 1.51 MG/DL (0.55-1.02); GFR AFRICAN AMERICAN 40 ML/MIN (>=60); GFR NON AFRICAN AMERICAN 35 ML/MIN (>=60); SODIUM, SERUM 139 MMOL/L (135-148)
[2016-12-25 05:40] LABS: BUN (BLOOD UREA NITROGEN) 47 MG/DL (6-23); GLUCOSE, SERUM 262 MG/DL (60-99); PHOSPHORUS, SERUM 3.5 MG/DL (2.5-4.5)
[2016-12-25 06:12] LABS: PROCALCITONIN 13.23 ng/mL (<0.5)
[2016-12-26 07:15] LABS: BASOPHILS 0 %; EOSINOPHILS 0 %; HEMATOCRIT 30.8 % (36.0-48.0); HEMOGLOBIN 9.2 g/dL (12.0-16.0); IMMATURE GRANULOCYTES 0.2 %; IMMATURE GRANULOCYTES ABSOLUTE 0.02 10/3/uL (0.0-0.11); LYMPHOCYTES 8.4 %; LYMPHOCYTES ABSOLUTE 0.78 10/3/uL (0.67-4.30); MEAN CORPUS HGB CONC 29.9 g/dL (32.0-36.0); MEAN CORPUSCULAR HEMOGLOB 26.5 pg (26.0-34.0); MEAN CORPUSCULAR VOLUME 88.8 fL (80-100); MEAN PLATELET VOLUME 11.2 fL (9.2-13.0); MONOCYTES 3.3 %; MONOCYTES ABSOLUTE 0.31 10/3/uL (0.21-1.20); NEUTROPHILS 88.1 %; NEUTROPHILS ABSOLUTE 8.16 10/3/uL (2.02-8.40); PLATELET COUNT 126 10/3/uL (150-400); RBC DISTRIBUTION WIDTH 18.5 % (12.0-16.0); RED CELL COUNT 3.47 10/6/uL (4.0-5.6); WHITE BLOOD CELLS 9.3 10/3/uL (4.5-10.5)
[2016-12-26 07:16] LABS: MANUAL DIFF NO %
[2016-12-26 07:22] LABS: INTERNATIONAL NORMAL RATI 3.8 UNITS (-); PROTIME (NOT ORD) 36.9 SEC (12.0-14.5)
[2016-12-26 07:30] LABS: BUN (BLOOD UREA NITROGEN) 45 MG/DL (6-23); CALCIUM, SERUM 8.8 MG/DL (8.5-10.4); CHLORIDE, SERUM 103 MMOL/L (96-112); CO2 (CARBON DIOXIDE) 29 MMOL/L (24-34); CREATININE 1.21 MG/DL (0.55-1.02); GFR AFRICAN AMERICAN 53 ML/MIN (>=60); GFR NON AFRICAN AMERICAN 46 ML/MIN (>=60); GLUCOSE, SERUM 169 MG/DL (60-99); PHOSPHORUS, SERUM 2.6 MG/DL (2.5-4.5); POTASSIUM, SERUM 4.2 MMOL/L (3.5-5.3); SODIUM, SERUM 139 MMOL/L (135-148)
[2016-12-27 05:31] LABS: BASOPHILS 0 %; EOSINOPHILS 0.9 %; EOSINOPHILS ABSOLUTE 0.06 10/3/uL (0.0-0.53); HEMATOCRIT 32.2 % (36.0-48.0); HEMOGLOBIN 9.6 g/dL (12.0-16.0); IMMATURE GRANULOCYTES 0.4 %; IMMATURE GRANULOCYTES ABSOLUTE 0.03 10/3/uL (0.0-0.11); LYMPHOCYTES 12.3 %; LYMPHOCYTES ABSOLUTE 0.84 10/3/uL (0.67-4.30); MEAN CORPUS HGB CONC 29.8 g/dL (32.0-36.0); MEAN CORPUSCULAR HEMOGLOB 26.7 pg (26.0-34.0); MEAN CORPUSCULAR VOLUME 89.7 fL (80-100); MEAN PLATELET VOLUME 11.8 fL (9.2-13.0); MONOCYTES 7.9 %; MONOCYTES ABSOLUTE 0.54 10/3/uL (0.21-1.20); NEUTROPHILS 78.5 %; NEUTROPHILS ABSOLUTE 5.38 10/3/uL (2.02-8.40); PLATELET COUNT 135 10/3/uL (150-400); RBC DISTRIBUTION WIDTH 18.3 % (12.0-16.0); RED CELL COUNT 3.59 10/6/uL (4.0-5.6); WHITE BLOOD CELLS 6.9 10/3/uL (4.5-10.5)
[2016-12-27 05:34] LABS: MANUAL DIFF NO %
[2016-12-27 05:42] LABS: PROTIME (NOT ORD) 22.3 SEC (12.0-14.5)
[2016-12-27 05:51] LABS: BUN (BLOOD UREA NITROGEN) 40 MG/DL (6-23); CALCIUM, SERUM 8.4 MG/DL (8.5-10.4); CHLORIDE, SERUM 107 MMOL/L (96-112); CO2 (CARBON DIOXIDE) 28 MMOL/L (24-34); CREATININE 1.06 MG/DL (0.55-1.02); GFR AFRICAN AMERICAN 62 ML/MIN (>=60); GFR NON AFRICAN AMERICAN 54 ML/MIN (>=60); GLUCOSE, SERUM 70 MG/DL (60-99); POTASSIUM, SERUM 3.9 MMOL/L (3.5-5.3); SODIUM, SERUM 142 MMOL/L (135-148)
[2016-12-28 05:50] LABS: BASOPHILS 0 %; EOSINOPHILS ABSOLUTE 0.08 10/3/uL (0.0-0.53); HEMATOCRIT 29.5 % (36.0-48.0); HEMOGLOBIN 8.9 g/dL (12.0-16.0); IMMATURE GRANULOCYTES 0.5 %; IMMATURE GRANULOCYTES ABSOLUTE 0.04 10/3/uL (0.0-0.11); LYMPHOCYTES 8.9 %; LYMPHOCYTES ABSOLUTE 0.73 10/3/uL (0.67-4.30); MEAN CORPUS HGB CONC 30.2 g/dL (32.0-36.0); MEAN CORPUSCULAR HEMOGLOB 26.6 pg (26.0-34.0); MEAN CORPUSCULAR VOLUME 88.3 fL (80-100); MEAN PLATELET VOLUME 10.8 fL (9.2-13.0); MONOCYTES 4.8 %; MONOCYTES ABSOLUTE 0.39 10/3/uL (0.21-1.20); NEUTROPHILS 84.8 %; NEUTROPHILS ABSOLUTE 6.93 10/3/uL (2.02-8.40); PLATELET COUNT 121 10/3/uL (150-400); RBC DISTRIBUTION WIDTH 18.3 % (12.0-16.0); RED CELL COUNT 3.34 10/6/uL (4.0-5.6); WHITE BLOOD CELLS 8.2 10/3/uL (4.5-10.5)
[2016-12-28 05:51] LABS: MANUAL DIFF NO %
[2016-12-28 05:57] LABS: INTERNATIONAL NORMAL RATI 1.5 UNITS (-); PROTIME (NOT ORD) 17.5 SEC (12.0-14.5)
[2016-12-28 06:00] LABS: CALCIUM, SERUM 8.7 MG/DL (8.5-10.4); CHLORIDE, SERUM 105 MMOL/L (96-112); CO2 (CARBON DIOXIDE) 30 MMOL/L (24-34); CREATININE 0.95 MG/DL (0.55-1.02); GFR AFRICAN AMERICAN 71 ML/MIN (>=60); GFR NON AFRICAN AMERICAN 61 ML/MIN (>=60); PHOSPHORUS, SERUM 2.3 MG/DL (2.5-4.5); POTASSIUM, SERUM 4.1 MMOL/L (3.5-5.3); SODIUM, SERUM 140 MMOL/L (135-148)
[2016-12-28 06:03] LABS: BUN (BLOOD UREA NITROGEN) 34 MG/DL (6-23); GLUCOSE, SERUM 119 MG/DL (60-99)
[2016-12-29 05:43] LABS: BASOPHILS 0 %; EOSINOPHILS 1.3 %; EOSINOPHILS ABSOLUTE 0.12 10/3/uL (0.0-0.53); HEMATOCRIT 32.3 % (36.0-48.0); HEMOGLOBIN 9.6 g/dL (12.0-16.0); IMMATURE GRANULOCYTES 0.4 %; IMMATURE GRANULOCYTES ABSOLUTE 0.04 10/3/uL (0.0-0.11); LYMPHOCYTES 8.2 %; LYMPHOCYTES ABSOLUTE 0.75 10/3/uL (0.67-4.30); MEAN CORPUS HGB CONC 29.7 g/dL (32.0-36.0); MEAN CORPUSCULAR HEMOGLOB 26.7 pg (26.0-34.0); MEAN CORPUSCULAR VOLUME 89.7 fL (80-100); MEAN PLATELET VOLUME 11.1 fL (9.2-13.0); MONOCYTES 3.6 %; MONOCYTES ABSOLUTE 0.33 10/3/uL (0.21-1.20); NEUTROPHILS 86.5 %; NEUTROPHILS ABSOLUTE 7.88 10/3/uL (2.02-8.40); PLATELET COUNT 132 10/3/uL (150-400); RBC DISTRIBUTION WIDTH 18.1 % (12.0-16.0); WHITE BLOOD CELLS 9.1 10/3/uL (4.5-10.5)
[2016-12-29 05:47] LABS: MANUAL DIFF NO %
[2016-12-29 05:51] LABS: INTERNATIONAL NORMAL RATI 1.3 UNITS (-); PROTIME (NOT ORD) 16.3 SEC (12.0-14.5)
[2016-12-29 05:58] LABS: CALCIUM, SERUM 8.4 MG/DL (8.5-10.4); CHLORIDE, SERUM 107 MMOL/L (96-112); CO2 (CARBON DIOXIDE) 28 MMOL/L (24-34); CREATININE 1.04 MG/DL (0.55-1.02); GFR AFRICAN AMERICAN 63 ML/MIN (>=60); GFR NON AFRICAN AMERICAN 55 ML/MIN (>=60); PHOSPHORUS, SERUM 2.5 MG/DL (2.5-4.5); POTASSIUM, SERUM 4.2 MMOL/L (3.5-5.3); SODIUM, SERUM 140 MMOL/L (135-148)
[2016-12-29 05:59] LABS: BUN (BLOOD UREA NITROGEN) 30 MG/DL (6-23); GLUCOSE, SERUM 175 MG/DL (60-99)
[2016-12-30 05:44] LABS: BASOPHILS 0 %; EOSINOPHILS ABSOLUTE 0.13 10/3/uL (0.0-0.53); HEMATOCRIT 30.2 % (36.0-48.0); HEMOGLOBIN 9.1 g/dL (12.0-16.0); IMMATURE GRANULOCYTES 0.6 %; IMMATURE GRANULOCYTES ABSOLUTE 0.04 10/3/uL (0.0-0.11); LYMPHOCYTES 10.3 %; LYMPHOCYTES ABSOLUTE 0.67 10/3/uL (0.67-4.30); MEAN CORPUS HGB CONC 30.1 g/dL (32.0-36.0); MEAN CORPUSCULAR HEMOGLOB 26.8 pg (26.0-34.0); MEAN CORPUSCULAR VOLUME 88.8 fL (80-100); MEAN PLATELET VOLUME 11.6 fL (9.2-13.0); MONOCYTES 4.3 %; MONOCYTES ABSOLUTE 0.28 10/3/uL (0.21-1.20); NEUTROPHILS 82.8 %; PLATELET COUNT 141 10/3/uL (150-400); RBC DISTRIBUTION WIDTH 18.3 % (12.0-16.0); WHITE BLOOD CELLS 6.5 10/3/uL (4.5-10.5)
[2016-12-30 05:47] LABS: INTERNATIONAL NORMAL RATI 1.3 UNITS (-); MANUAL DIFF NO %; PROTIME (NOT ORD) 16.4 SEC (12.0-14.5)
[2016-12-30 05:48] LABS: PARTIAL THROMBO TIME 36.1 SEC (22.5-37.2)
[2016-12-30 06:09] LABS: ALBUMIN 2.4 G/DL (3.5-5.0); BUN (BLOOD UREA NITROGEN) 23 MG/DL (6-23); CALCIUM, SERUM 8.4 MG/DL (8.5-10.4); CHLORIDE, SERUM 106 MMOL/L (96-112); CO2 (CARBON DIOXIDE) 32 MMOL/L (24-34); CREATININE 0.93 MG/DL (0.55-1.02); GFR AFRICAN AMERICAN 73 ML/MIN (>=60); GFR NON AFRICAN AMERICAN 63 ML/MIN (>=60); GLUCOSE, SERUM 109 MG/DL (60-99); PHOSPHORUS, SERUM 2.6 MG/DL (2.5-4.5); POTASSIUM, SERUM 4.3 MMOL/L (3.5-5.3); SODIUM, SERUM 140 MMOL/L (135-148); ULTRASENSITIVE TSH 0.724 MCIU/ML (0.358-3.740)
[2016-12-31 03:23] LABS: BASOPHILS 0 %; EOSINOPHILS 2.1 %; EOSINOPHILS ABSOLUTE 0.12 10/3/uL (0.0-0.53); IMMATURE GRANULOCYTES 0.4 %; IMMATURE GRANULOCYTES ABSOLUTE 0.02 10/3/uL (0.0-0.11); LYMPHOCYTES 10.9 %; LYMPHOCYTES ABSOLUTE 0.62 10/3/uL (0.67-4.30); MEAN CORPUS HGB CONC 30.1 g/dL (32.0-36.0); MEAN CORPUSCULAR HEMOGLOB 26.6 pg (26.0-34.0); MEAN CORPUSCULAR VOLUME 88.4 fL (80-100); MEAN PLATELET VOLUME 11.2 fL (9.2-13.0); MONOCYTES 4.4 %; MONOCYTES ABSOLUTE 0.25 10/3/uL (0.21-1.20); NEUTROPHILS 82.2 %; NEUTROPHILS ABSOLUTE 4.68 10/3/uL (2.02-8.40); PLATELET COUNT 125 10/3/uL (150-400); RBC DISTRIBUTION WIDTH 18.4 % (12.0-16.0); RED CELL COUNT 3.01 10/6/uL (4.0-5.6); WHITE BLOOD CELLS 5.7 10/3/uL (4.5-10.5)
[2016-12-31 03:26] LABS: HEMATOCRIT 26.6 % (36.0-48.0); MANUAL DIFF NO %
[2016-12-31 03:31] LABS: INTERNATIONAL NORMAL RATI 1.4 UNITS (-); PROTIME (NOT ORD) 16.6 SEC (12.0-14.5)
[2016-12-31 03:36] LABS: BUN (BLOOD UREA NITROGEN) 23 MG/DL (6-23); CALCIUM, SERUM 7.8 MG/DL (8.5-10.4); CHLORIDE, SERUM 107 MMOL/L (96-112); CO2 (CARBON DIOXIDE) 30 MMOL/L (24-34); CREATININE 0.92 MG/DL (0.55-1.02); GFR AFRICAN AMERICAN 74 ML/MIN (>=60); GFR NON AFRICAN AMERICAN 64 ML/MIN (>=60); GLUCOSE, SERUM 97 MG/DL (60-99); PHOSPHORUS, SERUM 3.1 MG/DL (2.5-4.5); POTASSIUM, SERUM 4.6 MMOL/L (3.5-5.3); SODIUM, SERUM 142 MMOL/L (135-148)
[2016-12-31 03:43] LABS: HYPOCHROMIA 1+ (3-10/OIF) (0-2/OIF); PLATELET ESTIMATE ADQ (ADEQUATE)
[2017-01-01 03:30] LABS: BASOPHILS 0 %; EOSINOPHILS 0.5 %; EOSINOPHILS ABSOLUTE 0.03 10/3/uL (0.0-0.53); HEMATOCRIT 25.8 % (36.0-48.0); HEMOGLOBIN 7.9 g/dL (12.0-16.0); IMMATURE GRANULOCYTES 0.5 %; IMMATURE GRANULOCYTES ABSOLUTE 0.03 10/3/uL (0.0-0.11); LYMPHOCYTES 11.4 %; LYMPHOCYTES ABSOLUTE 0.64 10/3/uL (0.67-4.30); MEAN CORPUS HGB CONC 30.6 g/dL (32.0-36.0); MEAN CORPUSCULAR HEMOGLOB 27.2 pg (26.0-34.0); MEAN PLATELET VOLUME 11.3 fL (9.2-13.0); MONOCYTES 5.3 %; NEUTROPHILS 82.3 %; NEUTROPHILS ABSOLUTE 4.63 10/3/uL (2.02-8.40); PLATELET COUNT 97 10/3/uL (150-400); WHITE BLOOD CELLS 5.6 10/3/uL (4.5-10.5)
[2017-01-01 03:34] LABS: MANUAL DIFF NO %
[2017-01-01 03:36] LABS: BUN (BLOOD UREA NITROGEN) 23 MG/DL (6-23); CALCIUM, SERUM 8.3 MG/DL (8.5-10.4); CHLORIDE, SERUM 106 MMOL/L (96-112); CO2 (CARBON DIOXIDE) 29 MMOL/L (24-34); CREATININE 1.05 MG/DL (0.55-1.02); GFR AFRICAN AMERICAN 63 ML/MIN (>=60); GFR NON AFRICAN AMERICAN 54 ML/MIN (>=60); POTASSIUM, SERUM 4.1 MMOL/L (3.5-5.3); SODIUM, SERUM 141 MMOL/L (135-148)
[2017-01-01 03:37] LABS: GLUCOSE, SERUM 173 MG/DL (60-99)
[2017-01-01 04:52] LABS: INTERNATIONAL NORMAL RATI 1.4 UNITS (-); PARTIAL THROMBO TIME 40.7 SEC (22.5-37.2)
[2017-01-02 03:19] LABS: BASOPHILS 0.1 %; BASOPHILS ABSOLUTE 0.01 10/3/uL (0.0-0.16); EOSINOPHILS 1.2 %; EOSINOPHILS ABSOLUTE 0.11 10/3/uL (0.0-0.53); HEMATOCRIT 27.1 % (36.0-48.0); HEMOGLOBIN 8.1 g/dL (12.0-16.0); IMMATURE GRANULOCYTES 0.4 %; IMMATURE GRANULOCYTES ABSOLUTE 0.04 10/3/uL (0.0-0.11); LYMPHOCYTES 9.7 %; LYMPHOCYTES ABSOLUTE 0.89 10/3/uL (0.67-4.30); MEAN CORPUS HGB CONC 29.9 g/dL (32.0-36.0); MEAN CORPUSCULAR HEMOGLOB 26.7 pg (26.0-34.0); MEAN CORPUSCULAR VOLUME 89.4 fL (80-100); MONOCYTES 5.8 %; MONOCYTES ABSOLUTE 0.53 10/3/uL (0.21-1.20); NEUTROPHILS 82.8 %; NEUTROPHILS ABSOLUTE 7.55 10/3/uL (2.02-8.40); PLATELET COUNT 99 10/3/uL (150-400); RBC DISTRIBUTION WIDTH 18.4 % (12.0-16.0); RED CELL COUNT 3.03 10/6/uL (4.0-5.6)
[2017-01-02 03:23] LABS: MANUAL DIFF NO %; WHITE BLOOD CELLS 9.1 10/3/uL (4.5-10.5)
[2017-01-02 03:34] LABS: CALCIUM, SERUM 8.4 MG/DL (8.5-10.4); CHLORIDE, SERUM 107 MMOL/L (96-112); CO2 (CARBON DIOXIDE) 30 MMOL/L (24-34); CREATININE 1.06 MG/DL (0.55-1.02); GFR AFRICAN AMERICAN 62 ML/MIN (>=60); GFR NON AFRICAN AMERICAN 54 ML/MIN (>=60); POTASSIUM, SERUM 4.2 MMOL/L (3.5-5.3); SODIUM, SERUM 142 MMOL/L (135-148)
[2017-01-02 03:35] LABS: BUN (BLOOD UREA NITROGEN) 19 MG/DL (6-23); GLUCOSE, SERUM 62 MG/DL (60-99)
[2017-01-03 03:34] LABS: BASOPHILS 0 %; EOSINOPHILS 1.3 %; EOSINOPHILS ABSOLUTE 0.11 10/3/uL (0.0-0.53); HEMATOCRIT 25.7 % (36.0-48.0); HEMOGLOBIN 7.6 g/dL (12.0-16.0); IMMATURE GRANULOCYTES 0.3 %; IMMATURE GRANULOCYTES ABSOLUTE 0.03 10/3/uL (0.0-0.11); LYMPHOCYTES 10.7 %; LYMPHOCYTES ABSOLUTE 0.93 10/3/uL (0.67-4.30); MEAN CORPUS HGB CONC 29.6 g/dL (32.0-36.0); MEAN CORPUSCULAR HEMOGLOB 26.6 pg (26.0-34.0); MEAN CORPUSCULAR VOLUME 89.9 fL (80-100); MEAN PLATELET VOLUME 11.6 fL (9.2-13.0); MONOCYTES 4.7 %; MONOCYTES ABSOLUTE 0.41 10/3/uL (0.21-1.20); NEUTROPHILS ABSOLUTE 7.22 10/3/uL (2.02-8.40); PLATELET COUNT 90 10/3/uL (150-400); RBC DISTRIBUTION WIDTH 18.7 % (12.0-16.0); RED CELL COUNT 2.86 10/6/uL (4.0-5.6); WHITE BLOOD CELLS 8.7 10/3/uL (4.5-10.5)
[2017-01-03 03:42] LABS: MANUAL DIFF NO %
[2017-01-03 03:51] LABS: BUN (BLOOD UREA NITROGEN) 16 MG/DL (6-23); CALCIUM, SERUM 8.4 MG/DL (8.5-10.4); CHLORIDE, SERUM 106 MMOL/L (96-112); CO2 (CARBON DIOXIDE) 30 MMOL/L (24-34); CREATININE 1.03 MG/DL (0.55-1.02); GFR AFRICAN AMERICAN 64 ML/MIN (>=60); GFR NON AFRICAN AMERICAN 55 ML/MIN (>=60); GLUCOSE, SERUM 74 MG/DL (60-99); POTASSIUM, SERUM 4.3 MMOL/L (3.5-5.3); SODIUM, SERUM 143 MMOL/L (135-148)
[2017-01-04 03:44] LABS: BASOPHILS 0.1 %; BASOPHILS ABSOLUTE 0.01 10/3/uL (0.0-0.16); EOSINOPHILS 0.9 %; EOSINOPHILS ABSOLUTE 0.07 10/3/uL (0.0-0.53); HEMATOCRIT 25.7 % (36.0-48.0); HEMOGLOBIN 7.6 g/dL (12.0-16.0); IMMATURE GRANULOCYTES 0.5 %; IMMATURE GRANULOCYTES ABSOLUTE 0.04 10/3/uL (0.0-0.11); LYMPHOCYTES 8.5 %; LYMPHOCYTES ABSOLUTE 0.67 10/3/uL (0.67-4.30); MEAN CORPUS HGB CONC 29.6 g/dL (32.0-36.0); MEAN CORPUSCULAR HEMOGLOB 26.8 pg (26.0-34.0); MEAN CORPUSCULAR VOLUME 90.5 fL (80-100); MEAN PLATELET VOLUME 11.3 fL (9.2-13.0); MONOCYTES 4.8 %; MONOCYTES ABSOLUTE 0.38 10/3/uL (0.21-1.20); NEUTROPHILS 85.2 %; NEUTROPHILS ABSOLUTE 6.68 10/3/uL (2.02-8.40); PLATELET COUNT 85 10/3/uL (150-400); RBC DISTRIBUTION WIDTH 18.9 % (12.0-16.0); RED CELL COUNT 2.84 10/6/uL (4.0-5.6); WHITE BLOOD CELLS 7.9 10/3/uL (4.5-10.5)
[2017-01-04 03:46] LABS: MANUAL DIFF NO %
[2017-01-04 04:00] LABS: BUN (BLOOD UREA NITROGEN) 16 MG/DL (6-23); CALCIUM, SERUM 8.6 MG/DL (8.5-10.4); CHLORIDE, SERUM 104 MMOL/L (96-112); CO2 (CARBON DIOXIDE) 32 MMOL/L (24-34); CREATININE 1.05 MG/DL (0.55-1.02); GFR AFRICAN AMERICAN 63 ML/MIN (>=60); GFR NON AFRICAN AMERICAN 54 ML/MIN (>=60); GLUCOSE, SERUM 94 MG/DL (60-99); POTASSIUM, SERUM 4.5 MMOL/L (3.5-5.3); SODIUM, SERUM 141 MMOL/L (135-148)
[2017-01-05 03:46] LABS: BASOPHILS 0.1 %; BASOPHILS ABSOLUTE 0.01 10/3/uL (0.0-0.16); EOSINOPHILS ABSOLUTE 0.07 10/3/uL (0.0-0.53); HEMATOCRIT 25.4 % (36.0-48.0); HEMOGLOBIN 7.5 g/dL (12.0-16.0); IMMATURE GRANULOCYTES 0.4 %; IMMATURE GRANULOCYTES ABSOLUTE 0.03 10/3/uL (0.0-0.11); LYMPHOCYTES 12.1 %; LYMPHOCYTES ABSOLUTE 0.86 10/3/uL (0.67-4.30); MEAN CORPUS HGB CONC 29.5 g/dL (32.0-36.0); MEAN CORPUSCULAR HEMOGLOB 26.9 pg (26.0-34.0); MEAN PLATELET VOLUME 11.2 fL (9.2-13.0); MONOCYTES 4.5 %; MONOCYTES ABSOLUTE 0.32 10/3/uL (0.21-1.20); NEUTROPHILS 81.9 %; NEUTROPHILS ABSOLUTE 5.82 10/3/uL (2.02-8.40); PLATELET COUNT 85 10/3/uL (150-400); RBC DISTRIBUTION WIDTH 19.4 % (12.0-16.0); RED CELL COUNT 2.79 10/6/uL (4.0-5.6); WHITE BLOOD CELLS 7.1 10/3/uL (4.5-10.5)
[2017-01-05 03:48] LABS: MANUAL DIFF NO %
[2017-01-05 03:58] LABS: BUN (BLOOD UREA NITROGEN) 16 MG/DL (6-23); CALCIUM, SERUM 8.3 MG/DL (8.5-10.4); CHLORIDE, SERUM 105 MMOL/L (96-112); CO2 (CARBON DIOXIDE) 32 MMOL/L (24-34); CREATININE 1.22 MG/DL (0.55-1.02); GFR AFRICAN AMERICAN 52 ML/MIN (>=60); GFR NON AFRICAN AMERICAN 45 ML/MIN (>=60); POTASSIUM, SERUM 4.6 MMOL/L (3.5-5.3); SODIUM, SERUM 144 MMOL/L (135-148)
[2017-01-05 03:59] LABS: GLUCOSE, SERUM 123 MG/DL (60-99)
[2017-01-06 03:45] LABS: BASOPHILS 0.2 %; BASOPHILS ABSOLUTE 0.01 10/3/uL (0.0-0.16); EOSINOPHILS ABSOLUTE 0.12 10/3/uL (0.0-0.53); HEMATOCRIT 23.3 % (36.0-48.0); IMMATURE GRANULOCYTES 0.3 %; IMMATURE GRANULOCYTES ABSOLUTE 0.02 10/3/uL (0.0-0.11); LYMPHOCYTES 14.8 %; MEAN CORPUS HGB CONC 29.6 g/dL (32.0-36.0); MEAN PLATELET VOLUME 11.9 fL (9.2-13.0); MONOCYTES 5.7 %; MONOCYTES ABSOLUTE 0.35 10/3/uL (0.21-1.20); NEUTROPHILS ABSOLUTE 4.69 10/3/uL (2.02-8.40); PLATELET COUNT 84 10/3/uL (150-400); RBC DISTRIBUTION WIDTH 19.7 % (12.0-16.0); RED CELL COUNT 2.56 10/6/uL (4.0-5.6); WHITE BLOOD CELLS 6.1 10/3/uL (4.5-10.5)
[2017-01-06 03:49] LABS: HEMOGLOBIN 6.9 g/dL (12.0-16.0); INTERNATIONAL NORMAL RATI 1.4 UNITS (-); MANUAL DIFF NO %; PROTIME (NOT ORD) 16.8 SEC (12.0-14.5)
[2017-01-06 03:56] LABS: BUN (BLOOD UREA NITROGEN) 18 MG/DL (6-23); CALCIUM, SERUM 8.7 MG/DL (8.5-10.4); CHLORIDE, SERUM 105 MMOL/L (96-112); CO2 (CARBON DIOXIDE) 33 MMOL/L (24-34); GFR AFRICAN AMERICAN 53 ML/MIN (>=60); GFR NON AFRICAN AMERICAN 46 ML/MIN (>=60); POTASSIUM, SERUM 4.2 MMOL/L (3.5-5.3); SODIUM, SERUM 142 MMOL/L (135-148)
[2017-01-06 03:57] LABS: GLUCOSE, SERUM 76 MG/DL (60-99)
[2017-01-06 07:42] LABS: ALLENS TEST Pos; BE (BASE EXCESS) 6.2 MEQ/L (0 +/- 2.5); CARBOXYHEMOGLOBIN 1.8 % (0-3); HCO3 (ACTUAL BICARBONATE) 30.9 MEQ/L (23-27); HEMOBLOGIN CONTENT 8.3 G/DL (12-16); INSTRUMENT SERIAL # 11843; METHEMOGLOBIN 0.6 % (0-3); O2 CONTENT 11.1 VOL% (18-24); PCO2 (CO2 TENSION) 46 MMHG (35-45); PO2 (O2 TENSION) 89 MMHG (79-93); SAMPLE Arterial; pH 7.45 (7.37-7.43)
[2017-01-06 10:23] LABS: HEMATOCRIT 24.7 % (36.0-48.0); HEMOGLOBIN 7.3 g/dL (12.0-16.0); MEAN CORPUS HGB CONC 29.6 g/dL (32.0-36.0); MEAN CORPUSCULAR HEMOGLOB 26.9 pg (26.0-34.0); MEAN CORPUSCULAR VOLUME 91.1 fL (80-100); MEAN PLATELET VOLUME 12.3 fL (9.2-13.0); PLATELET COUNT 93 10/3/uL (150-400); RBC DISTRIBUTION WIDTH 19.9 % (12.0-16.0); RED CELL COUNT 2.71 10/6/uL (4.0-5.6); WHITE BLOOD CELLS 7.6 10/3/uL (4.5-10.5)
[2017-01-06 10:41] LABS: ANISOCYTOSIS 1+ (5-10/OIF) (0-5/OIF); EOSINOPHILS 1 %; EOSINOPHILS ABSOLUTE (CALC) 0.08 10/3/uL (0.0-0.53); LYMPHOCYTES 8 %; LYMPHOCYTES ABSOLUTE (CALC) 0.61 10/3/uL (0.67-4.30); MONOCYTES 2 %; MONOCYTES ABSOLUTE (CALC) 0.15 10/3/uL (0.21-1.20); NEUTROPHILS ABSOLUTE (CALC) 6.76 10/3/uL (2.02-8.40); PLATELET ESTIMATE DEC (ADEQUATE); SEGMENTED NEUTROPHIL (0) 89 %; TOTAL NUCLEATED CELLS 100
[2017-01-06 10:42] LABS: HYPOCHROMIA 1+ (3-10/OIF) (0-2/OIF)
[2017-01-07 04:10] LABS: BASOPHILS 0.2 %; BASOPHILS ABSOLUTE 0.01 10/3/uL (0.0-0.16); EOSINOPHILS 1.7 %; EOSINOPHILS ABSOLUTE 0.09 10/3/uL (0.0-0.53); IMMATURE GRANULOCYTES 0.6 %; IMMATURE GRANULOCYTES ABSOLUTE 0.03 10/3/uL (0.0-0.11); LYMPHOCYTES 13.3 %; MEAN CORPUS HGB CONC 29.3 g/dL (32.0-36.0); MEAN CORPUSCULAR HEMOGLOB 26.7 pg (26.0-34.0); MEAN CORPUSCULAR VOLUME 91.4 fL (80-100); MEAN PLATELET VOLUME 11.2 fL (9.2-13.0); MONOCYTES 5.7 %; NEUTROPHILS 78.5 %; NEUTROPHILS ABSOLUTE 4.12 10/3/uL (2.02-8.40); PLATELET COUNT 82 10/3/uL (150-400); RBC DISTRIBUTION WIDTH 20.4 % (12.0-16.0); RED CELL COUNT 2.43 10/6/uL (4.0-5.6); WHITE BLOOD CELLS 5.3 10/3/uL (4.5-10.5)
[2017-01-07 04:11] LABS: HEMATOCRIT 22.2 % (36.0-48.0); HEMOGLOBIN 6.5 g/dL (12.0-16.0)
[2017-01-07 04:12] LABS: MANUAL DIFF NO %
[2017-01-07 04:37] LABS: ALBUMIN 2.3 G/DL (3.5-5.0); BUN (BLOOD UREA NITROGEN) 19 MG/DL (6-23); CALCIUM, SERUM 8.3 MG/DL (8.5-10.4); CHLORIDE, SERUM 106 MMOL/L (96-112); CO2 (CARBON DIOXIDE) 31 MMOL/L (24-34); CREATININE 1.23 MG/DL (0.55-1.02); GFR AFRICAN AMERICAN 52 ML/MIN (>=60); GFR NON AFRICAN AMERICAN 45 ML/MIN (>=60); POTASSIUM, SERUM 4.5 MMOL/L (3.5-5.3); SGOT(AST) 23 U/L (5-40); SGPT(ALT) 14 U/L (5-65); SODIUM, SERUM 142 MMOL/L (135-148); TOTAL BILIRUBIN 1.1 MG/DL (0-1.2)
[2017-01-07 04:39] LABS: A/G RATIO 0.7 (0.7-1.9); ALKALINE PHOSPHATASE 157 U/L (45-117); GLOBULIN 3.4 G/DL (2.5-4.1); GLUCOSE, SERUM 135 MG/DL (60-99); TOTAL PROTEIN 5.7 G/DL (6.0-8.5)
[2017-01-07 04:45] LABS: INTERNATIONAL NORMAL RATI 1.4 UNITS (-); PROTIME (NOT ORD) 16.6 SEC (12.0-14.5)
[2017-01-07 11:54] LABS: HEMATOCRIT 23.6 % (36.0-48.0)
[2017-01-07 11:56] LABS: HEMOGLOBIN 6.9 g/dL (12.0-16.0)
[2017-01-08 05:47] LABS: BASOPHILS 0.2 %; BASOPHILS ABSOLUTE 0.01 10/3/uL (0.0-0.16); EOSINOPHILS 2.6 %; EOSINOPHILS ABSOLUTE 0.11 10/3/uL (0.0-0.53); HEMATOCRIT 23.4 % (36.0-48.0); IMMATURE GRANULOCYTES 0.5 %; IMMATURE GRANULOCYTES ABSOLUTE 0.02 10/3/uL (0.0-0.11); LYMPHOCYTES 16.2 %; LYMPHOCYTES ABSOLUTE 0.69 10/3/uL (0.67-4.30); MEAN CORPUS HGB CONC 29.9 g/dL (32.0-36.0); MEAN CORPUSCULAR HEMOGLOB 27.3 pg (26.0-34.0); MEAN CORPUSCULAR VOLUME 91.4 fL (80-100); MEAN PLATELET VOLUME 11.1 fL (9.2-13.0); MONOCYTES 5.4 %; MONOCYTES ABSOLUTE 0.23 10/3/uL (0.21-1.20); NEUTROPHILS 75.1 %; PLATELET COUNT 88 10/3/uL (150-400); RBC DISTRIBUTION WIDTH 20.5 % (12.0-16.0); RED CELL COUNT 2.56 10/6/uL (4.0-5.6); WHITE BLOOD CELLS 4.3 10/3/uL (4.5-10.5)
[2017-01-08 05:51] LABS: INTERNATIONAL NORMAL RATI 1.4 UNITS (-); PROTIME (NOT ORD) 17.1 SEC (12.0-14.5)
[2017-01-08 05:54] LABS: MANUAL DIFF NO %
[2017-01-08 05:55] LABS: BUN (BLOOD UREA NITROGEN) 17 MG/DL (6-23); CALCIUM, SERUM 8.4 MG/DL (8.5-10.4); CHLORIDE, SERUM 107 MMOL/L (96-112); CO2 (CARBON DIOXIDE) 29 MMOL/L (24-34); CREATININE 1.11 MG/DL (0.55-1.02); GFR AFRICAN AMERICAN 59 ML/MIN (>=60); GFR NON AFRICAN AMERICAN 51 ML/MIN (>=60); GLUCOSE, SERUM 108 MG/DL (60-99); SODIUM, SERUM 141 MMOL/L (135-148)
[2017-01-08 11:43] LABS: % IRON SAT 36 % (20-50); FERRITIN 141 NG/ML (8-252); IRON BINDING CAPACITY 354 MCG/DL (225-410); IRON, SERUM 127 MCG/DL (35-150)
[2017-01-09 04:41] LABS: BASOPHILS 0.2 %; BASOPHILS ABSOLUTE 0.01 10/3/uL (0.0-0.16); EOSINOPHILS 2.4 %; EOSINOPHILS ABSOLUTE 0.11 10/3/uL (0.0-0.53); HEMOGLOBIN 7.2 g/dL (12.0-16.0); IMMATURE GRANULOCYTES 0.2 %; IMMATURE GRANULOCYTES ABSOLUTE 0.01 10/3/uL (0.0-0.11); LYMPHOCYTES 16.3 %; LYMPHOCYTES ABSOLUTE 0.73 10/3/uL (0.67-4.30); MEAN CORPUSCULAR HEMOGLOB 27.8 pg (26.0-34.0); MEAN CORPUSCULAR VOLUME 92.7 fL (80-100); MEAN PLATELET VOLUME 10.9 fL (9.2-13.0); MONOCYTES 4.9 %; MONOCYTES ABSOLUTE 0.22 10/3/uL (0.21-1.20); NEUTROPHILS ABSOLUTE 3.41 10/3/uL (2.02-8.40); PLATELET COUNT 91 10/3/uL (150-400); RBC DISTRIBUTION WIDTH 20.8 % (12.0-16.0); RED CELL COUNT 2.59 10/6/uL (4.0-5.6); WHITE BLOOD CELLS 4.5 10/3/uL (4.5-10.5)
[2017-01-09 04:42] LABS: MANUAL DIFF NO %
[2017-01-09 04:52] LABS: INTERNATIONAL NORMAL RATI 1.3 UNITS (-); PROTIME (NOT ORD) 16.4 SEC (12.0-14.5)
[2017-01-09 04:53] LABS: BUN (BLOOD UREA NITROGEN) 17 MG/DL (6-23); CALCIUM, SERUM 8.3 MG/DL (8.5-10.4); CHLORIDE, SERUM 106 MMOL/L (96-112); CO2 (CARBON DIOXIDE) 31 MMOL/L (24-34); CREATININE 1.18 MG/DL (0.55-1.02); GFR AFRICAN AMERICAN 54 ML/MIN (>=60); GFR NON AFRICAN AMERICAN 47 ML/MIN (>=60); POTASSIUM, SERUM 3.8 MMOL/L (3.5-5.3); SODIUM, SERUM 140 MMOL/L (135-148)
[2017-01-09 04:54] LABS: GLUCOSE, SERUM 79 MG/DL (60-99)
[2017-01-09 18:06] LABS: ASCORBIC ACID (UR NOT ORDER) NEG (NEG); BILIRUBIN, URINE NEGATIVE (NEG); KETONE, URINE NEGATIVE (NEG); LEUKOCYTE ESTERASE(NOT OR MOD (NEG); WBC (NOT ORDERED) (RFLEX) 2 (0-5)
[2017-01-10 05:51] LABS: INTERNATIONAL NORMAL RATI 1.5 UNITS (-); PROTIME (NOT ORD) 17.5 SEC (12.0-14.5)
[2017-01-10 05:59] LABS: BUN (BLOOD UREA NITROGEN) 14 MG/DL (6-23); CALCIUM, SERUM 8.2 MG/DL (8.5-10.4); CHLORIDE, SERUM 106 MMOL/L (96-112); CO2 (CARBON DIOXIDE) 29 MMOL/L (24-34); CREATININE 1.15 MG/DL (0.55-1.02); GFR AFRICAN AMERICAN 56 ML/MIN (>=60); GFR NON AFRICAN AMERICAN 49 ML/MIN (>=60); POTASSIUM, SERUM 4.1 MMOL/L (3.5-5.3); SODIUM, SERUM 143 MMOL/L (135-148)
[2017-01-10 06:03] LABS: GLUCOSE, SERUM 128 MG/DL (60-99)
[2017-01-11 04:08] LABS: INTERNATIONAL NORMAL RATI 1.7 UNITS (-); PROTIME (NOT ORD) 19.9 SEC (12.0-14.5)
[2017-01-11 14:19] LABS: BASOPHILS 0 %; EOSINOPHILS 2.6 %; EOSINOPHILS ABSOLUTE 0.11 10/3/uL (0.0-0.53); HEMOGLOBIN 7.8 g/dL (12.0-16.0); IMMATURE GRANULOCYTES 0.2 %; IMMATURE GRANULOCYTES ABSOLUTE 0.01 10/3/uL (0.0-0.11); LYMPHOCYTES 19.5 %; LYMPHOCYTES ABSOLUTE 0.81 10/3/uL (0.67-4.30); MEAN CORPUSCULAR HEMOGLOB 27.7 pg (26.0-34.0); MEAN CORPUSCULAR VOLUME 92.2 fL (80-100); MEAN PLATELET VOLUME 10.4 fL (9.2-13.0); MONOCYTES 5.3 %; MONOCYTES ABSOLUTE 0.22 10/3/uL (0.21-1.20); NEUTROPHILS 72.4 %; NEUTROPHILS ABSOLUTE 3.01 10/3/uL (2.02-8.40); PLATELET COUNT 83 10/3/uL (150-400); RED CELL COUNT 2.82 10/6/uL (4.0-5.6); WHITE BLOOD CELLS 4.2 10/3/uL (4.5-10.5)
[2017-01-11 14:21] LABS: MANUAL DIFF NO %
[2017-01-11 17:12] LABS: ASCORBIC ACID (UR NOT ORDER) NEG (NEG); BILIRUBIN, URINE NEGATIVE (NEG); KETONE, URINE NEGATIVE (NEG); LEUKOCYTE ESTERASE(NOT OR MOD (NEG); WBC (NOT ORDERED) (RFLEX) 43 (0-5)
[2017-01-12 04:13] LABS: BASOPHILS 0.3 %; BASOPHILS ABSOLUTE 0.01 10/3/uL (0.0-0.16); EOSINOPHILS 4.2 %; EOSINOPHILS ABSOLUTE 0.16 10/3/uL (0.0-0.53); HEMATOCRIT 24.7 % (36.0-48.0); HEMOGLOBIN 7.3 g/dL (12.0-16.0); IMMATURE GRANULOCYTES 0.3 %; IMMATURE GRANULOCYTES ABSOLUTE 0.01 10/3/uL (0.0-0.11); LYMPHOCYTES 23.7 %; MANUAL DIFF NO %; MEAN CORPUS HGB CONC 29.6 g/dL (32.0-36.0); MEAN CORPUSCULAR HEMOGLOB 27.8 pg (26.0-34.0); MEAN CORPUSCULAR VOLUME 93.9 fL (80-100); MEAN PLATELET VOLUME 10.3 fL (9.2-13.0); MONOCYTES 5.5 %; MONOCYTES ABSOLUTE 0.21 10/3/uL (0.21-1.20); PLATELET COUNT 88 10/3/uL (150-400); RBC DISTRIBUTION WIDTH 21.1 % (12.0-16.0); RED CELL COUNT 2.63 10/6/uL (4.0-5.6); WHITE BLOOD CELLS 3.8 10/3/uL (4.5-10.5)
[2017-01-12 04:20] LABS: PROTIME (NOT ORD) 22.2 SEC (12.0-14.5)
[2017-01-12 09:05] LABS: CREATININE 1.13 MG/DL (0.55-1.02)
[2017-01-13 03:31] LABS: BASOPHILS 0.3 %; BASOPHILS ABSOLUTE 0.01 10/3/uL (0.0-0.16); EOSINOPHILS 4.2 %; EOSINOPHILS ABSOLUTE 0.15 10/3/uL (0.0-0.53); HEMATOCRIT 25.9 % (36.0-48.0); HEMOGLOBIN 7.7 g/dL (12.0-16.0); IMMATURE GRANULOCYTES 0.3 %; IMMATURE GRANULOCYTES ABSOLUTE 0.01 10/3/uL (0.0-0.11); LYMPHOCYTES ABSOLUTE 0.82 10/3/uL (0.67-4.30); MEAN CORPUS HGB CONC 29.7 g/dL (32.0-36.0); MEAN CORPUSCULAR HEMOGLOB 27.7 pg (26.0-34.0); MEAN CORPUSCULAR VOLUME 93.2 fL (80-100); MEAN PLATELET VOLUME 10.3 fL (9.2-13.0); MONOCYTES 6.7 %; MONOCYTES ABSOLUTE 0.24 10/3/uL (0.21-1.20); NEUTROPHILS 65.5 %; NEUTROPHILS ABSOLUTE 2.34 10/3/uL (2.02-8.40); PLATELET COUNT 96 10/3/uL (150-400); RBC DISTRIBUTION WIDTH 21.1 % (12.0-16.0); RED CELL COUNT 2.78 10/6/uL (4.0-5.6); WHITE BLOOD CELLS 3.6 10/3/uL (4.5-10.5)
[2017-01-13 03:32] LABS: MANUAL DIFF NO %
[2017-01-13 03:38] LABS: INTERNATIONAL NORMAL RATI 2.2 UNITS (-); PROTIME (NOT ORD) 24.2 SEC (12.0-14.5)
[2017-01-14 04:55] LABS: INTERNATIONAL NORMAL RATI 2.5 UNITS (-); PROTIME (NOT ORD) 26.4 SEC (12.0-14.5)
[2017-01-14 05:06] LABS: BUN (BLOOD UREA NITROGEN) 14 MG/DL (6-23); CALCIUM, SERUM 8.2 MG/DL (8.5-10.4); CHLORIDE, SERUM 105 MMOL/L (96-112); CO2 (CARBON DIOXIDE) 29 MMOL/L (24-34); CREATININE 1.14 MG/DL (0.55-1.02); GFR AFRICAN AMERICAN 57 ML/MIN (>=60); GFR NON AFRICAN AMERICAN 49 ML/MIN (>=60); POTASSIUM, SERUM 3.8 MMOL/L (3.5-5.3); SODIUM, SERUM 140 MMOL/L (135-148)
[2017-01-14 05:07] LABS: GLUCOSE, SERUM 84 MG/DL (60-99)
[2017-01-15 05:50] LABS: BASOPHILS 0.7 %; BASOPHILS ABSOLUTE 0.02 10/3/uL (0.0-0.16); EOSINOPHILS 7.9 %; EOSINOPHILS ABSOLUTE 0.23 10/3/uL (0.0-0.53); HEMOGLOBIN 7.1 g/dL (12.0-16.0); IMMATURE GRANULOCYTES 0.3 %; IMMATURE GRANULOCYTES ABSOLUTE 0.01 10/3/uL (0.0-0.11); LYMPHOCYTES 23.3 %; LYMPHOCYTES ABSOLUTE 0.68 10/3/uL (0.67-4.30); MEAN CORPUS HGB CONC 30.5 g/dL (32.0-36.0); MEAN CORPUSCULAR HEMOGLOB 28.1 pg (26.0-34.0); MEAN CORPUSCULAR VOLUME 92.1 fL (80-100); MEAN PLATELET VOLUME 10.1 fL (9.2-13.0); MONOCYTES 6.8 %; NEUTROPHILS ABSOLUTE 1.78 10/3/uL (2.02-8.40); PLATELET COUNT 90 10/3/uL (150-400); RBC DISTRIBUTION WIDTH 20.4 % (12.0-16.0); RED CELL COUNT 2.53 10/6/uL (4.0-5.6); WHITE BLOOD CELLS 2.9 10/3/uL (4.5-10.5)
[2017-01-15 05:51] LABS: HEMATOCRIT 23.3 % (36.0-48.0); INTERNATIONAL NORMAL RATI 2.9 UNITS (-); MANUAL DIFF NO %
[2017-01-15 05:58] LABS: BUN (BLOOD UREA NITROGEN) 13 MG/DL (6-23); CHLORIDE, SERUM 110 MMOL/L (96-112); CO2 (CARBON DIOXIDE) 28 MMOL/L (24-34); CREATININE 1.14 MG/DL (0.55-1.02); GFR AFRICAN AMERICAN 57 ML/MIN (>=60); GFR NON AFRICAN AMERICAN 49 ML/MIN (>=60); POTASSIUM, SERUM 3.9 MMOL/L (3.5-5.3); SODIUM, SERUM 145 MMOL/L (135-148)
[2017-01-15 05:59] LABS: GLUCOSE, SERUM 114 MG/DL (60-99)
== END 2017-01-15 18:45 | disposition left against medical advice (07) | DRG 242 ==
LOC: ENRESERVTM → ENRESERVDT → ENRESERV → ER 21:18 → 5NO 12-15 00:49 → SSU1 12-15 00:49 → CVICU 12-15 00:49 → 2SO 12-15 00:49 → SSU1 12-29 16:39 → SDC/OF 12-30 10:25 → PACU 12-30 12:21 → CVICU 12-30 13:36 → 5NO 01-07 12:54
PROVIDERS: Emergency Medicine; Hospitalist; Internal Medicine; Internal Medicine Cardiovascular Disease; Internal Medicine Infectious Disease; Internal Medicine Pulmonary Disease; Student in an Organized Health Care Education/Training Program; Thoracic Surgery (Cardiothoracic Vascular Surgery)
PROC: 5A09457 Assistance with Respiratory Ventilation, 24-96 Consecutive Hours, Continuous Positive Airway Pressure (ICD-10-PCS; principal; 2016-12-15)
PROC: 5A1223Z Performance of Cardiac Pacing, Continuous (ICD-10-PCS; 2016-12-29)
PROC: 02H63JZ Insertion of Pacemaker Lead into Right Atrium, Percutaneous Approach (ICD-10-PCS; 2016-12-29)
PROC: 0JPT0PZ Removal of Cardiac Rhythm Related Device from Trunk Subcutaneous Tissue and Fascia, Open Approach (ICD-10-PCS; 2016-12-30)
PROC: 02PA0MZ Removal of Cardiac Lead from Heart, Open Approach (ICD-10-PCS; 2016-12-30 10:45)
PROC: 0JH606Z Insertion of Pacemaker, Dual Chamber into Chest Subcutaneous Tissue and Fascia, Open Approach (ICD-10-PCS; 2016-12-30 10:45)
PROC: 0JQ60ZZ Repair Chest Subcutaneous Tissue and Fascia, Open Approach (ICD-10-PCS; 2017-01-01)
PROC: 02HK3JZ Insertion of Pacemaker Lead into Right Ventricle, Percutaneous Approach (ICD-10-PCS; 2017-01-01)
PROC: 05753ZZ Dilation of Right Subclavian Vein, Percutaneous Approach (ICD-10-PCS; 2017-01-14)
PROC: 02HV33Z Insertion of Infusion Device into Superior Vena Cava, Percutaneous Approach (ICD-10-PCS; 2017-01-14)
DX: T82.7XXA Infection and inflammatory reaction due to other cardiac and vascular devices, implants and grafts, initial encounter (principal); A41.02 Sepsis due to Methicillin resistant Staphylococcus aureus; J96.21 Acute and chronic respiratory failure with hypoxia; I50.23 Acute on chronic systolic (congestive) heart failure; G93.41 Metabolic encephalopathy; C79.51 Secondary malignant neoplasm of bone; I49.5 Sick sinus syndrome; I11.0 Hypertensive heart disease with heart failure; R65.20 Severe sepsis without septic shock; N17.9 Acute kidney failure, unspecified; E66.2 Morbid (severe) obesity with alveolar hypoventilation; Z68.41 Body mass index [BMI] 40.0-44.9, adult; N39.0 Urinary tract infection, site not specified; I27.2 Other secondary pulmonary hypertension; Z99.81 Dependence on supplemental oxygen; C50.912 Malignant neoplasm of unspecified site of left female breast; E11.9 Type 2 diabetes mellitus without complications; I25.10 Atherosclerotic heart disease of native coronary artery without angina pectoris; D63.8 Anemia in other chronic diseases classified elsewhere; I48.2 Chronic atrial fibrillation; Z95.0 Presence of cardiac pacemaker; Z95.1 Presence of aortocoronary bypass graft; Z86.14 Personal history of Methicillin resistant Staphylococcus aureus infection; Z88.0 Allergy status to penicillin; Z83.3 Family history of diabetes mellitus; Z79.01 Long term (current) use of anticoagulants; Z79.899 Other long term (current) drug therapy; Z85.3 Personal history of malignant neoplasm of breast; Z90.49 Acquired absence of other specified parts of digestive tract; Z98.890 Other specified postprocedural states; Z90.12 Acquired absence of left breast and nipple; Z79.4 Long term (current) use of insulin; Z80.0 Family history of malignant neoplasm of digestive organs; G47.33 Obstructive sleep apnea (adult) (pediatric); K59.00 Constipation, unspecified
CPT/HCPCS: 33208; 33210; 36415; 36569; 36597; 36600; 70450; 71010; 71020; 74176; 76001; 77001; 80048; 80053; 80069; 80202; 81001; 82140; 82550; 82553; 82565; 82607; 82728; 82746; 82805; 82947; 82962; 83010; 83036; 83540; 83550; 83605; 83615; 83690; 83735; 83880; 84100; 84132; 84145; 84443; 84484; 85007; 85014; 85018; 85025; 85027; 85610; 85730; 86850; 86860; 86870; 86880; 86900; 86901; 86902; 86920; 86922; 87015; 87040; 87070; 87075; 87077; 87086; 87102; 87116; 87150; 87186; 87205; 87641; 88300; 92610-GN; 93005; 93312; 93320; 93325; 94640; 94660; 96365; 96375; 97110-GP; 97116-GP; 97161-GP; 97164-GP; 97166-GO; 97530-GP; 97535-GO; 99285; A9270-GY; C1725; C1751; C1756; C1769; C1773; C1781; C1785; C1893; C1894; C1898; G8978-CJ-GP; G8978-CK-GP; G8979-CI-GP; G8987-CK-GO; G8988-CJ-GO; G8996-CJ-GN; G8997-CJ-GN; G8998-CJ-GN; J0360; J0692; J0878; J1940; J2250; J2370; J2405; J2710; J2930; J3010; J3370; J3475; P9016; Q9967